=== PATIENT | female | born 1985 | race Caucasian/White ===

== ENCOUNTER 2025-02-13 06:48 | Emergency (ER) | payer BC, SELFPAY ==
[2025-02-13 06:52] VITALS: BP 112/94; PULSE 104; TEMP 36.9; O2SAT 95; BMI 26.6
--- OUTSIDE RECORDS SUMMARY | 2025-02-13 06:57 | XMS_ITS | CCD ---
Author Organization [facility] Care Team Providers Care Voltmeter Operator Name Role Phone Hali Myles Unavailable DR LIZETH OTERO Primary Care Unavailable ROSANNA ., DR JOSEPH Lyles Attending Unavailable ROSANNA ., DR JOSEPH Lyles Consulting Unavailable ROSANNA ., DR JOSEPH Lyles Admitting Unavailable JOSÉ ., DR STANLEY Primary Care Unavailable JOSÉ ., DR STANLEY Admitting Unavailable JOSÉ ., DR STANLEY Attending Unavailable JOSÉ ., DR STANLEY Consulting Unavailable Provider, None Primary Care Unavailable LIZETH NAVARRO Referring Unavailable LIZETH NAVARRO Primary Care Unavailable RADHA LAMB Referring Unavailable LIZETH NAVARRO Primary Care Unavailable RADHA LAMB Referring Unavailable LIZETH NAVARRO Primary Care Unavailable Lizeth Navarro MD Primary Care Provider [phone] Medications Current Medications Medication Drug Class(es) Dates Sig (Normalized) Sig (Original) 24 hr buPROPion hydrochloride 300 mg extended release oral tablet (3 sources) Aminoketone Start: 03-30-2022 take 1 tablet by mouth every twenty-four hours Bupropion Hcl 300 mg tablet extended release 24 hr Active MG PO April 24, 2024 11:00pm levothyroxine sodium 0.05 mg oral tablet (3 sources) l-Thyroxine Start: 04-18-2022 take 2 tablets by mouth once daily Levothyroxine 50 mcg tablet Active 100 MCG PO Daily April 24, 2024 11:00pm liothyronine (3 sources) l-Triiodothyronin e Start: 04-25-2024 take 1 tablet by mouth once daily Liothyronine 5 mcg tablet Active 5 MCG PO Daily April 24, 2024 11:00pm Start: 04-22-2022 take 1 tablet by caren th in the morning liothyronine (CYTOMEL) 5 MCG tablet Take 1 tablet (5 mcg total) by mouth in the morning. 04/22/2022 Active 24 hr propranolol hydrochloride 60 mg extended release oral capsule (3 sources) beta-Adrenergic Constance Start: 04-25-2024 take 1 capsule by mouth every twenty-four hours Propranolol 60 mg capsule,extended release 24 hr Active MG PO April 24, 2024 11:00pm Start: 06-01-2022 take 1 capsule by mo ut once daily propranolol LA (INDERAL LA) 60 mg 24 hr capsule Take by mouth daily. 06/01/2022 Active SUMAtriptan 100 mg oral tablet (4 sources) Serotonin-1b and Serotonin-1d Receptor Agonist Start: 06-19-2022 Sumatriptan Succinat e 100 mg tablet Active MG PO April 24, 2024 11:00pm Imitrex 6 MG/0.5 ML 0.5 ml may repeat dose after 1 hour as needed Injection Once a day Active Completed/Discontinued Medications Medication Drug Class(es) Dates Sig (Normalized) Sig (Original) Toradol 30 mg/ml (1 source) Start: 06-10-2022 Toradol 30 mg/ml May, 30 mg Problems Active Problems Problem Classification Problem Date Documented Da te Episodic/Chronic Headache; including migraine (5 sources) Migraine, unspecified, not intractable, without status migrainosus; Translations: [Migraine] Onset: 12-24-2022 08-23-2024 Chronic Other nutritional; endocrine; and metabolic disorders (2 sources) Obese class I; Translations: [Obesity (BMI 30.0-34.9)] Onset: 08-23-2024 08-23-2024 Chronic Other screening for suspected conditions (not mental disorders or infectious disease) (2 sources) Encounter for screening mammogram for malignant neoplasm of breast; Translations: [Patient encounter status] Onset: 08-31-2024 08-23-2024 Episodic Spondylosis; intervertebral disc disorders; other back problems (4 sources) Spondylosis without myelopathy or radiculopathy, cervical region; Translations: [SPONDYLS W/O MYELO-/RADICULOP CERV] Onset: 12-22-2022 Chronic Thyroid disorders (1 source) Hypothyroidism, unspecified; Translations: [Hypothyroidism, unspecified] Onset: 06-30-2024 Chronic Past or Other Problems Problem Classification Problem Date Documented Date Episodic/Chronic Headache; including migraine (1 source) Headache; including migraine Onset: 06-10-2022 Resolved: 06-10-2022 Mood disorders (2 sources) Mood disorders Onset: 08-23-2024 08-23-2024 Nausea and vomiting (1 source) Nausea Onset: 06-10-2022 Resolved: 06-10-2022 Episodic Nonmalignant breast conditions (2 sources) Heterogeneously dense breast composition; Translations: [Heterogeneously dense tissue of both breasts on mammography] Onset: 08-31-2024 08-31-2024 Episodic Screening and history of mental health and substance abuse codes (1 source) Standardized adult depression screening tool completed ; Translations: [Encounter for screening for depression] 08-23-2024 Episodic Unclassified (2 sources) Onset: 08-23-2024 08-23-2024 Results Test Name Value Interpretation Reference Range Facility MAMM SCREENING BILATERAL W C feather baler 08-31-2024 MAMM SCREENING BILATERAL W CAD MAMM SCREENING BILATERAL W CAD VINCENZO BAGLEY 1985 [id number] EXAM: MAMM SCREENING BILATERAL W CAD, 08/31/2024 9:16 AM CLINICAL INDICATIONS: Screening, Encounter for screening mammogram for breast cancer COMPARISON: No prior studies currently available for comparison. TECHNIQUE: Bilateral digital tomosynthesis MLO and CC views of the breasts were obtained, with creation of synthetic 2D views. Computer aided detection was utilized. FINDINGS: The breasts are heterogeneously dense, which may obscure small masses. There are no suspicious masses, calcifications, or areas of architectural distortion. IMPRESSION: No mammographic evidence of malignancy. BI-RADS: BI-RADS 1 - Negative Recommendation: Routine screening mammogram in 1 year. As a separate recommendation, due to the density and/or complexity of breast tissue on mammography, Molecular Breast Imaging is recommended as a supplement to annual screening mammography. MBI can be used to help detect mammographically occult cancers in dense breasts. Finalized by Herson Feliciano MD on 08/31/2024 9:55 AM 1 c MAMM 1 YR Normal [facility] Cytologyon 08-23-2024 Cytology Normal [facility] Comment on above: Result Comment: [facility] [address] [place] [address] Gynecologic Cytology Consultation Patient Name:SANDRA BAGLEY:1985 (Age: 38)Gender:FTaken:4Reported:4Physician(s):Radha Lamb, [facility] ([phone])Copy To: Rec. #:[id number]: #[id number] Final Cytologic Interpretation ThinPrep Pap Test (Cervical): Satisfactory for evaluation. A transformazion zone component is not identified via imaging-assisted review, using CRISPR THERAPEUTICS Thin Prep Imaging System, within 22 microscopic murray of view. NEGATIVE FOR INTRAEPITHELIAL LESION OR MALIGNANCY. [facility] [place] Interpretation performed [place] [address], License number: [id number]. Electronically Signed Out By HUGO Rosales(ASCP) Date of Last Menstrual Period: 08/16/24 Other Clinical Conditions: Z01.419 [facility] exam wo/abn findings Source of Specimen ThinPrep Pap Test (Cervical) Thin Prep Pap (QUARTZ MOUNTER) Fee Code(s): G0145 The Pap test is a screening test with an inherent, but low, probability of error. The Pap test is primarily effective for the diagnosis and prevention of squamous cell carcinoma. Regular screening is critical for prevention. ThinPrep liquid-based slides, which meet the Physical Therapist Center Manager criteria for automated screening, have been screened by the ThinPrep Imaging System (as of 08/15/07) along with an additional manual rescreening by a weather clerk and, if indicated, by a pathologist. HIGH RISK HPV W/GENOon 08-23 HPV 31+33+35+39+45+51+52 +56+58+59+66+68 DNA LUIGI+probe Ql (Cvx) HPV SPECIMEN TYPE ThinPrep HPV 16 Negative (qualifier value) HPV 18 Negative (qualifier value) OTHER HIGH RISK HPV Negative (qualifier value) HPV types 31,33,35,39,45,52,56, 58,59,66 and 68 DNA were undetectable. Normal [facility] Comment on above: Performed By: #### 7 1431-1 #### [facility] ([id number]) [address], [place] [address] [facility] ([id number]) [address] [place] [address] CBC AND AUTO DIFFon 06-30-20 24 ABSOLUTE BASOPHIL 0.0 X10E9/L Normal 0.0-0.2 [facility] Comment on above: Performed By: #### C BCA, HA1C, CMP, 45071-4, THYR, 3051-0 #### [facility] ([id number]) [address], [address] [place] [address] ABSOLUTE NEUTROPHIL 2.1 X10E9/L Normal 1.5-6.6 [facility] Comment on above: Performed By: #### C BCA, HA1C, CMP, 33995-4, THYR, 3051-0 #### [facility] ([id number]) [address], [address] [place] [address] Basophils/100 WBC (Bld) 1.0 % Normal [facility] Comment on above: Performed By: #### C BCA, HA1C, CMP, 08234-5, THYR, 3051-0 #### [facility] ([id number]) [address], [address] [place] [address] Eosinophils (Bld) [#/Vol] 0.0 10*3/uL Normal 0.0-0.4 [facility] Comment on above: Performed By: #### C BCA, HA1C, CMP, 27950-6, THYR, 3051-0 #### [facility] ([id number]) [address], [address] [place] [address] Eosinophils/100 WBC (Bld) 1.2 % Normal [facility] Comment on above: Performed By: #### C BCA, HA1C, CMP, 41874-8, THYR, 3051-0 #### [facility] ([id number]) [address], [address] [place] [address] Erythrocyte distribution width (RBC) [Ratio] 13.9 % Normal 11.5-15.0 [facility] Comment on above: Performed By: #### C BCA, HA1C, CMP, 76058-6, THYR, 3051-0 #### [facility] ([id number]) [address] [address] [place] [address] Hematocrit (Bld) [Volume fraction] 39.7 % Normal 35-47 [facility] Comment on above: Performed By: #### C BCA, HA1C, CMP, 96097-0, THYR, 3051-0 #### [facility] ([id number]) [address] [address] [place] [address] Hemoglobin (Bld) [Mass/Vol] 13.1 g/dL Normal 11.7-15.5 [facility] Comment on above: Performed By: #### C BCA, HA1C, CMP, 18016-8, THYR, 3051-0 #### [facility] ([id number]) [address] [address] [place] [address] Lymphocytes (Bld) [#/Vol] 1.6 10*3/uL Normal 1.0-3.5 [facility] Comment on above: Performed By: #### C BCA, HA1C, CMP, 27935-2, THYR, 3051-0 #### [facility] ([id number]) [address] [address] [place] [address] Lymphocytes/100 WBC (Bld) 38.7 % Normal [facility] Comment on above: Performed By: #### C BCA, HA1C, CMP, 00492-7, THYR, 3051-0 #### [facility] ([id number]) [address] [place] [address] MCH (RBC) [Entitic mass] 30.0 pg Normal 27-34 [facility] Comment on above: Performed By: #### C BCA, HA1C, CMP, 60089-7, THYR, 3051-0 #### [facility] ([id number]) [address], [facility] [address] [place] [address] MCHC (RBC) [Mass/Vol] 32.9 g/dL Normal 32-36 [facility] Comment on above: Performed By: #### C BCA, HA1C, CMP, 24254-6, THYR, 3051-0 #### [facility] ([id number]) [address] [address] [place] [address] MCV (RBC) [Entitic vol] 91 fL Normal 80-100 [facility] Comment on above: Performed By: #### C BCA, HA1C, CMP, 63960-7, THYR, 3051-0 #### [facility] ([id number]) [address], [facility] [address] [place] [address] Monocytes (Bld) [#/Vol] 0.4 10*3/uL Normal 0-0.9 [facility] Comment on above: Performed By: #### C BCA, HA1C, CMP, 66508-3, THYR, 3051-0 #### [facility] ([id number]) [address] [address] [place] [address] Monocytes/100 WBC (Bld) 8.5 % Normal [facility] Comment on above: Performed By: #### C BCA, HA1C, CMP, 81919-7, THYR, 3051-0 #### [facility] ([id number]) [address] [address] [place] [address] Neutrophils/100 WBC (Bld) 50.6 % Normal [facility] Comment on above: Performed By: #### C BCA, HA1C, CMP, 73216-6, THYR, 3051-0 #### [facility] ([id number]) [address], [address] [place] [address] Platelet mean volume (Bld) [Entitic vol] 10.1 fL Normal 7-12 [facility] Comment on above: Performed By: #### C BCA, HA1C, CMP, 53459-2, THYR, 3051-0 #### [facility] ([id number]) [address] [address] [place] [address] Platelets (Bld) [#/Vol] 227 10*3/uL Normal 150-450 [facility] Comment on above: Performed By: #### C BCA, HA1C, CMP, 44951-0, THYR, 3051-0 #### [facility] ([id number]) [address] [address] [place] [address] RBC COUNT 4.36 X10E12/L Normal 3.80-5.20 [facility] Comment on above: Performed By: #### C BCA, HA1C, CMP, 55286-0, THYR, 3051-0 #### [facility] ([id number]) [address] [address] [place] [address] WBC (Bld) [#/Vol] 4.2 10*3/uL Normal 4.0-11.0 [facility] Comment on above: Performed By: #### C BCA, HA1C, CMP, 14611-0, THYR, 3051-0 #### [facility] ([id number]) [address] [address] [place] [address] COMPREHENSIVE METABOLIC PANE Andres 06-30-2024 Albumin [Mass/Vol] 4.2 g/dL Normal 3.2-5.3 [facility] Comment on above: Performed By: #### C BCA, HA1C, CMP, 20882-4, THYR, 3051-0 #### [facility] ([id number]) [address] [address] [place] [address] ALP [Catalytic activity/Vol] 66 U/L Normal 39-130 [facility] Comment on above: Performed By: #### C BCA, HA1C, CMP, 98534-3, THYR, 3051-0 #### [facility] ([id number]) [address], [address] [place] [address] ALT [Catalytic activity/Vol] 27 U/L Normal 0-31 [facility] Comment on above: Performed By: #### C BCA, HA1C, CMP, 61390-9, THYR, 3051-0 #### [facility] ([id number]) [address], [address] [place] [address] Anion gap [Moles/Vol] 11 mmol/L Normal 5-15 [facility] Comment on above: Performed By: #### C BCA, HA1C, CMP, 40509-7, THYR, 3051-0 #### [facility] ([id number]) [address], [address] [place] [address] AST [Catalytic activity/Vol] 23 U/L Normal 0-41 [facility] Comment on above: Performed By: #### C BCA, HA1C, CMP, 42850-5, THYR, 3051-0 #### [facility] ([id number]) [address], [address] [place] [address] Bilirubin [Mass/Vol] 0.5 mg/dL Normal 0.3-1.2 [facility] Comment on above: Performed By: #### C BCA, HA1C, CMP, 21656-1, THYR, 3051-0 #### [facility] ([id number]) [address] [address] [place] [address] Calcium [Mass/Vol] 9.3 mg/dL Normal 8.5-10.5 [facility] Comment on above: Performed By: #### C BCA, HA1C, CMP, 64103-0, THYR, 3051-0 #### [facility] ([id number]) [address], [address] [place] [address] Chloride [Moles/Vol] 101 mmol/L Normal 98-109 [facility] Comment on above: Performed By: #### C BCA, HA1C, CMP, 91045-8, THYR, 3051-0 #### [facility] ([id number]) [address], [address] [place] [address] CO2 [Moles/Vol] 26 mmol/L Normal 22-32 [facility] Comment on above: Performed By: #### C BCA, HA1C, CMP, 16305-0, THYR, 305-0 #### [facility] ([id number]) [address], [address] [place] [address] Creatinine [Mass/Vol] 0.72 mg/dL Normal 0.40-1.00 [facility] Comment on above: Result Comment: METH OD TRACEABLE TO IDMS STANDARD Performed By: #### C BCA, HA1C, CMP, 82389-5, THYR, 305-0 #### [facility] ([id number]) [address] [address] [place] [address] eGFR (CKD-EPI) NON-RACE DEPENDENT >90 Normal >59 [facility] Comment on above: Result Comment: Reported eGFR is based on the CKD-EPI 2020 equation that does not use a race coefficient. Performed By: #### C BCA, HA1C, CMP, 76101-8, THYR, 3051-0 #### [facility] ([id number]) [address] [address] [place] [address] Glucose [Mass/Vol] 91 mg/dL Normal 65-99 [facility] Comment on above: Performed By: #### C BCA, HA1C, CMP, 23855-3, THYR, 3051-0 #### [facility] ([id number]) [address], [address] [place] [address] Potassium [Moles/Vol] 4.0 mmol/L Normal 3.5-5.0 [facility] Comment on above: Performed By: #### C BCA, HA1C, CMP, 25064-4, THYR, 3051-0 #### [facility] ([id number]) [address], [address] [place] [address] Protein [Mass/Vol] 7.1 g/dL Normal 6.0-8.0 [facility] Comment on above: Performed By: #### C BCA, HA1C, CMP, 70571-9, THYR, 3051-0 #### [facility] ([id number]) [address], [address] [place] [address] Sodium [Moles/Vol] 138 mmol/L Normal 134-146 [facility] Comment on above: Performed By: #### C BCA, HA1C, CMP, 26443-6, THYR, 3051-0 #### [facility] ([id number]) [address], [address] [place] [address] Urea nitrogen [Mass/Vol] 12 mg/dL Normal 5-23 [facility] Comment on above: Performed By: #### C BCA, HA1C, CMP, 07115-3, THYR, 3051-0 #### [facility] ([id number]) [address], [address] [place] [address] FREE T3on 06-30-2024 Free T3 [Mass/Vol] 3.31 pg/mL Normal 2.50-3.90 [facility] Comment on above: Performed By: #### C BCA, HA1C, CMP, 31502-7, THYR, 3051-0 #### [facility] ([id number]) [address], [address] [place] [address] HGB A1C (GLYCO-HGB)on 2023 Glucose [Mass/Vol] 97 mg/dL Normal [facility] Comment on above: Performed By: #### C BCA, HA1C, CMP, 23252-2, THYR, 3051-0 #### [facility] ([id number]) [address], [address] [place] [address] HbA1c (Bld) [Mass fraction] 5.0 % Normal 4.4-5.6 [facility] Comment on above: Result Comment: NOTE ADA Guidelines Result HgbA1c Normal : less than 5.7 % Prediabetes : 5.7 % to 6.4 % Diabetes : > 6.4 % Use with caution in patients with abnormal hemoglobin variants as the half-life of red blood cells and in vivo glycation rates are affected. Performed By: #### C BCA, HA1C, CMP, 56910-3, THYR, 3051-0 #### [facility] ([id number]) [address], [address] [place] [address] Lipid 1996 panelon 4 Cholesterol [Mass/Vol] 173 mg/dL Normal 150-200 [facility] Comment on above: Performed By: #### Deondre BCA, HA1C, CMP, 35853-2, THYR, 3051-0 #### [facility] ([id number]) [address], [address] [place] [address] Cholesterol in HDL [Mass/Vol] 73 mg/dL Normal >39 [facility] Comment on above: Result Comment: HDL <40 mg/dL - High Risk HDL > or = 40mg/dL- Desirable HDL >60 mg/dL - Negative Risk Performed By: #### C BCA, HA1C, CMP, 37114-3, THYR, 3051-0 #### [facility] ([id number]) [address], [address] [place] [address] Cholesterol in LDL [Mass/Vol] 89 mg/dL Normal <130 [facility] Comment on above: Result Comment: LDL <100 mg/dL - Desirable LDL >160 mg/dL - High Risk Performed By: #### C BCA, HA1C, CMP, 80021-9, THYR, 3051-0 #### [facility] ([id number]) [address], [facility] [address] [place] [address] Cholesterol in VLDL [Mass/Vol] 11 mg/dL Normal 0-30 [facility] Comment on above: Performed By: #### C BCA, HA1C, CMP, 17574-9, THYR, 3051-0 #### [facility] ([id number]) [address], [facility] [address] [place] [address] CHOLESTEROL:HDL 2.4 Normal 1.0-5.0 [facility] Comment on above: Performed By: #### C BCA, HA1C, CMP, 31435-1, THYR, 3051-0 #### [facility] ([id number]) [address], [facility] [address] [place] [address] Triglyceride [Mass/Vol] 56 mg/dL Normal 27-150 [facility] Comment on above: Performed By: #### C BCA, HA1C, CMP, 13236-1, THYR, 3051-0 #### [facility] ([id number]) [address], [facility] [address] [place] [address] THYROID PROFILEon 06-30-2024 Free T4 [Mass/Vol] 0.75 ng/dL Normal 0.61-1.60 [facility] Comment on above: Performed By: #### C BCA, HA1C, CMP, 98453-0, THYR, 3051-0 #### [facility] ([id number]) [address], [address] [place] [address] TSH 2.51 uIU/mL Normal 0.49-4.67 [facility] Comment on above: Performed By: #### C BCA, HA1C, CMP, 09117-4, THYR, 3051-0 #### [facility] ([id number]) [address] [place] [address] Lab - Toxicology Resultson 0 06-21-2023 Lab - Toxicology Results [id number]#1. 00OTGTIFF Normal [facility] QuantiFERON-TB Gold Pluson 0 06-19-2023 QuantiFERON Incubation Incubation performed. Invalid Interpretation Code [facility] Comment on above: Result Comment: Perf ormed At: [address] [id number] Joelle Villa PhD Ph:[phone] Performed By: #### 1 [id number], [id number] #### [facility] (DEFAULT) [address] [place] [id number] QuantiFERON-TB Gold Plus Negative Invalid Interpretation Code Negative [facility] Comment on above: Result Comment: No r esponse to M tuberculosis antigens detected. Infection with M tuberculosis is unlikely, but high risk individuals should be considered for additional testing (ATS/IDSA/CDC Clinical Practice Guidelines, 2017). The reference range is an Antigen minus Nil result of <0.35 IU/mL. Chemiluminescence immunoassay methodology Performed At: [address] [id number] Joelle Villa PhD Ph:[phone] Performed By: #### 1 [id number], [id number], [id number] #### [facility] (DEFAULT) [address] [place] [id number] HBSab Qnt LCon 06-18-2023 Hep B Surf Ab Quant LC >1000.0 Invalid Interpretation Code Immunity>9.9 [facility] Comment on above: Result Comment: Stat us of Immunity Anti-HBs Level Inconsistent with Immunity 0.0 - 9.9 Consistent with Immunity >9.9 Performed At: [address] [id number] Joelle Villa PhD Ph:[phone] Performed By: #### 1 [id number], [id number], [id number] #### [facility] (DEFAULT) [address] [place] [id number] Measles/Mumps/Rubella Immuni ty LCon 06-18-2023 Mumps Abs, IgG LC 41.8 AU/mL Invalid Interpretation Code Immune >10.9 [facility] Comment on above: Result Comment: Nega tive <9.0 Equivocal 9.0 - 10.9 Positive >10.9 A positive result generally indicates past exposure to Mumps virus or previous vaccination. Performed At: [address] [id number] Joelle Villa PhD Ph:[phone] Performed By: #### 1 [id number] #### [facility] (DEFAULT) [address] [place] [address] Rubella Antibodies, IgG LC 2.76 index Invalid Interpretation Code Immune >0.99 [facility] Comment on above: Result Comment: Non- immune <0.90 Equivocal 0.90 - 0.99 Immune >0.99 Performed By: #### 1 [id number] #### [facility] (DEFAULT) [address] [place] [id number] Rubeola Ab, IgG, EIA LC 147.0 AU/mL Invalid Interpretation Code Immune >16.4 [facility] Comment on above: Result Comment: Nega tive <13.5 Equivocal 13.5 - 16.4 Positive >16.4 Presence of antibodies to Rubeola is presumptive evidence of immunity except when acute infection is suspected. Performed By: #### 1 [id number] #### [facility] (DEFAULT) [address] [place] [id number] Nicotine Metabolite, Urine L Con 06-18-2023 Cotinine LC Negative Invalid Interpretation Code [id number] [facility] Comment on above: Result Comment: Perf ormed At: [facility] [address] [facility], [place] [id number] Alexandria Eagle PhD Ph:[phone] Performed By: #### 1 [id number] #### [facility] (DEFAULT) [address] [place] [address] CBC AUTO DIFFon 04-12-2023 BASO # 0.0 103/ul Normal 0.0-0.1 [facility] Comment on above: Performed By: #### C BC #### [facility] [address] [place] [address] Dr. Meseret Zelaya Basophils/100 WBC (Bld) 0.5 % Normal 0.2-2.0 [facility] Comment on above: Performed By: #### C BC #### [facility] [address] [place] [address] Dr. Meseret Zelaya EO # 0.1 103/ul Normal 0.0-0.7 [facility] Comment on above: Performed By: #### C BC #### [facility] [address] [place] [address] Dr. Meseret Zelaya Eosinophils/100 WBC (Bld) 1.5 % Normal 0.9-7.0 [facility] Comment on above: Performed By: #### C BC #### [facility] [address] [place] [address] Dr. Meseret Zelaya Erythrocyte distribution width (RBC) [Ratio] 12.6 % Normal 11.0-15.0 [facility] Comment on above: Performed By: #### C BC #### [facility] [address] [place] [address] Dr. Meseret Zelaya Hematocrit (Bld) [Volume fraction] 36.2 % Normal 36.0-48.0 [facility] Comment on above: Performed By: #### C BC #### [facility] [address] [place] [address] Dr. Meseret Zelaya Hemoglobin (Bld) [Mass/Vol] 12.1 g/dL Normal 12.0-16.0 [facility] Comment on above: Performed By: #### C BC #### [facility] [address] [place] [address] Dr. Meseret Zelaya IG # 0.01 10e3/ul Normal 0.00-0.03 [facility] Comment on above: Performed By: #### C BC #### [facility] [address] [place] [address] Dr. Meseret Zelaya IG % 0.2 % Normal 0.0-0.5 [facility] Comment on above: Performed By: #### C BC #### [facility] [address] [place] [address] Dr. Meseret Zelaya LYMPH # 1.9 103/ul Normal 1.2-3.8 [facility] Comment on above: Performed By: #### C BC #### [facility] [address] [place] [address] Dr. Meseret Zelaya Lymphocytes/100 WBC (Bld) 31.7 % Normal 20.5-60.0 [facility] Comment on above: Performed By: #### C BC #### [facility] [address] [place] [address] Dr. Meseret Zelaya MANUAL DIFF REQ NO Normal [facility] Comment on above: Performed By: #### C BC #### [facility] [address] [place] [address] Dr. Meseret Zelaya MCH (RBC) [Entitic mass] 30.3 pg Normal 26.7-34.0 [facility] Comment on above: Performed By: #### C BC #### [facility] [address] [place] [address] Dr. Meseret Zelaya MCHC (RBC) [Mass/Vol] 33.4 g/dL Normal 29.9-35.2 [facility] Comment on above: Performed By: #### C BC #### [facility] [address] [place] [address] Dr. Meseret Zelaya MCV (RBC) [Entitic vol] 90.5 fL Normal 81.0-99.0 [facility] Comment on above: Performed By: #### C BC #### [facility] [address] [address] [address] Meseret Zelaya MONO # 0.3 103/ul Normal 0.3-0.8 [facility] Comment on above: Performed By: #### C BC #### [facility] [address] [address] [address] Meseret Zelaya Monocytes/100 WBC (Bld) 5.6 % Normal 1.7-12.0 [facility] Comment on above: Performed By: #### C BC #### [facility] [address] [address] [address] Meseret Zelaya NEUT # 3.6 103/ul Normal 1.4-6.5 [facility] Comment on above: Performed By: #### C BC #### [facility] [address] [place] [address] Dr. Meseret Zelaya Neutrophils/100 WBC (Bld) 60.5 % Normal 43.0-75.0 [facility] Comment on above: Performed By: #### C BC #### [facility] [address] [place] [address] Dr. Meseret Zelaya Platelet mean volume (Bld) [Entitic vol] 9.9 fL Normal 9.5-13.5 [facility] Comment on above: Performed By: #### C BC #### [facility] [address] [place] [address] Dr. Meseret Zelaya PLT 276 103/ul Normal 150-450 [facility] Comment on above: Performed By: #### C BC #### [facility] [address] [address] [address] Meseret Zelaya RBC 4.00 106/ul Critically low 4.20-5.40 [facility] Comment on above: Performed By: #### C BC #### [facility] [address] [address] [address] Meseret Zelaya WBC 5.9 103/ul Normal 4.0-11.0 [facility] Comment on above: Performed By: #### C BC #### [facility] [address] [address] [address] Meseret Zelaya FREE T3on 04-12-2023 FREE T3 3.21 pg/mlL Normal 2.18-3.98 [facility] Comment on above: Performed By: #### L IPID, CMP, TSH, FT3, T4 #### [facility] [address] [address] [address] Meseret Zelaya GLYCOHEMOGLOBIN A1Con 2022 ADA RECOMMENDATION SEE BELOW Normal [facility] Comment on above: Result Comment: ADA RECOMMENDED LIMIT 4.0 - 6.0 ADA THERAPEUTIC TARGET < 7.0 ACTION SUGGESTED > 7.0 Performed By: #### A 1C #### [facility] [address] [place] [address] Dr. Meseret Zelaya Glucose [Mass/Vol] 97 mg/dL Normal [facility] Comment on above: Performed By: #### A 1C #### [facility] [address] [place] [address] Dr. Meseret Zelaya HbA1c (Bld) [Mass fraction] 5.0 % Normal 4.5-6.2 [facility] Comment on above: Performed By: #### A 1C #### [facility] [address] [place] [address] Dr. Meseret Zelaya LIPID PROFILEon 04-12-2023 CHOL-HDL RATIO NORM SEE BELOW Normal [facility] Comment on above: Result Comment: 3.3 - 4.4 LOW RISK 4.4 - 7.1 AVERAGE RISK 7.1 - 11.0 MODERATE RISK >11.0 HIGH RISK Performed By: #### L IPID, CMP, TSH, FT3, T4 #### [facility] [address] [place] [address] Dr. Meseret Zelaya Cholesterol [Mass/Vol] 192 mg/dL Normal <=200 [facility] Comment on above: Performed By: #### L IPID, CMP, TSH, FT3, T4 #### [facility] [address] [place] [address] Dr. Meseret Zelaya Cholesterol in HDL [Mass/Vol] 75 mg/dL Critically high 40-60 [facility] Comment on above: Performed By: #### L IPID, CMP, TSH, FT3, T4 #### [facility] [address] [address] [address] Meseret Zelaya Cholesterol in LDL [Mass/Vol] 97.4 mg/dL Normal [facility] Comment on above: Performed By: #### L IPID, CMP, TSH, FT3, T4 #### [facility] [address] [address] [address] Meseret Zelaya Cholesterol.total/Ch olesterol in HDL [Mass ratio] 2.6 {ratio} Normal [facility] Comment on above: Performed By: #### L IPID, CMP, TSH, FT3, T4 #### [facility] [address] [place] [address] Dr. Meseret Zelaya HDL NORMAL > or = 60 mg/dl - LO W CARDIOVASCULAR RISK <40 mg/dl - HIGH CARDIOVASCULAR RISK Normal [facility] Comment on above: Performed By: #### L IPID, CMP, TSH, FT3, T4 #### [facility] [address] [place] [address] Dr. Meseret Zelaya LDL CALC NORMAL SEE BELOW Normal [facility] Comment on above: Result Comment: <100 mg/dl OPTIMAL 100 - 129 mg/dl NEAR OR ABOVE OPTIMAL 130 - 159 mg/dl BORDERLINE HIGH 160 - 189 mg/dl HIGH >190 mg/dl VERY HIGH Performed By: #### L IPID, CMP, TSH, FT3, T4 #### [facility] [address] [address] [address] Meseret Zelaya Triglyceride [Mass/Vol] 98 mg/dL Normal <=150 [facility] Comment on above: Performed By: #### L IPID, CMP, TSH, FT3, T4 #### [facility] [address] [place] [address] Dr. Meseret Zelaya VLDL CALC 19.6 mg/dL Normal [facility] Comment on above: Performed By: #### L IPID, CMP, TSH, FT3, T4 #### [facility] [address] [place] [address] Dr. Meseret Zelaya PROF 14(COMP METB)on 023 Albumin [Mass/Vol] 3.5 g/dL Normal 3.4-5.0 [facility] Comment on above: Performed By: #### L IPID, CMP, TSH, FT3, T4 #### [facility] [address] [place] [address] Dr. Meseret Zelaya Albumin/Globulin [Mass ratio] 1.0 {ratio} Normal [facility] Comment on above: Performed By: #### L IPID, CMP, TSH, FT3, T4 #### [facility] [address] [place] [address] Dr. Meseret Zelaya ALP [Catalytic activity/Vol] 72 U/L Normal 46-116 [facility] Comment on above: Performed By: #### L IPID, CMP, TSH, FT3, T4 #### [facility] [address] [place] [address] Dr. Meseret Zelaya ALT [Catalytic activity/Vol] 35 U/L Normal 14-59 [facility] Comment on above: Performed By: #### L IPID, CMP, TSH, FT3, T4 #### [facility] [address] [place] [address] Dr. Meseret Zelaya Anion gap [Moles/Vol] 12.0 mmol/L Normal [facility] Comment on above: Performed By: #### L IPID, CMP, TSH, FT3, T4 #### [facility] [address] [place] [address] Dr. Meseret Zelaya AST [Catalytic activity/Vol] 22 U/L Normal 15-37 [facility] Comment on above: Performed By: #### L IPID, CMP, TSH, FT3, T4 #### [facility] [address] [place] [address] Dr. Meseret Zelaya Bilirubin [Mass/Vol] 0.4 mg/dL Normal 0.2-1.0 [facility] Comment on above: Performed By: #### L IPID, CMP, TSH, FT3, T4 #### [facility] [address] [place] [address] Dr. Meseret Zelaya Calcium [Mass/Vol] 8.9 mg/dL Normal 8.5-10.1 [facility] Comment on above: Performed By: #### L IPID, CMP, TSH, FT3, T4 #### [facility] [address] [address] [address] Meseret Zelaya Chloride [Moles/Vol] 104 mmol/L Normal 98-107 [facility] Comment on above: Performed By: #### L IPID, CMP, TSH, FT3, T4 #### [facility] [address] [address] [address] Meseret Zelaya CO2 [Moles/Vol] 28.9 mmol/L Normal 21.0-32.0 [facility] Comment on above: Performed By: #### L IPID, CMP, TSH, FT3, T4 #### [facility] [address] [address] [address] Meseret Zelaya Creatinine [Mass/Vol] 0.76 mg/dL Normal 0.55-1.02 [facility] Comment on above: Performed By: #### L IPID, CMP, TSH, FT3, T4 #### [facility] [address] [address] [address] Meseret Zelaya EGFR-AF DANISH >60 Normal >=60 [facility] Comment on above: Performed By: #### L IPID, CMP, TSH, FT3, T4 #### [facility] [address] [address] [address] Meseret Zelaya EGFR-NON AF DANISH >60 Normal >=60 [facility] Comment on above: Performed By: #### L IPID, CMP, TSH, FT3, T4 #### [facility] [address] [address] [address] Meseret Zelaya Globulin (S) [Mass/Vol] 3.6 g/dL Normal [facility] Comment on above: Performed By: #### L IPID, CMP, TSH, FT3, T4 #### [facility] [address] [address] [address] Meseret Zelaya Glucose [Mass/Vol] 89 mg/dL Normal 74-106 [facility] Comment on above: Performed By: #### L IPID, CMP, TSH, FT3, T4 #### [facility] [address] [place] [address] Dr. Meseret Zelaya Potassium [Moles/Vol] 3.9 mmol/L Normal 3.5-5.1 [facility] Comment on above: Performed By: #### L IPID, CMP, TSH, FT3, T4 #### [facility] [address] [place] [address] Dr. Meseret Zelaya Protein [Mass/Vol] 7.1 g/dL Normal 6.4-8.2 [facility] Comment on above: Performed By: #### L IPID, CMP, TSH, FT3, T4 #### [facility] [address] [place] [address] Dr. Meseret Zelaya Sodium [Moles/Vol] 141 mmol/L Normal 136-145 [facility] Comment on above: Performed By: #### L IPID, CMP, TSH, FT3, T4 #### [facility] [address] [place] [address] Dr. Meseret Zelaya Urea nitrogen [Mass/Vol] 9.0 mg/dL Normal 7.0-18.0 [facility] Comment on above: Performed By: #### L IPID, CMP, TSH, FT3, T4 #### [facility] [address] [place] [address] Dr. Meseret Zelaya Urea nitrogen/Creatinine [Mass ratio] 11.8 mg/mg Normal [facility] Comment on above: Performed By: #### L IPID, CMP, TSH, FT3, T4 #### [facility] [address] [place] [address] Dr. Meseret Zelaya T4on 04-12-2023 T4 [Mass/Vol] 11.00 ug/dL Normal 4.80-13.90 [facility] Comment on above: Performed By: #### L IPID, CMP, TSH, FT3, T4 #### [facility] [address] [place] [address] Dr. Meseret Zelaya TSHon 04-12-2023 TSH 0.723 uIU/mL Normal 0.358-3.740 [facility] Comment on above: Performed By: #### L IPID, CMP, TSH, FT3, T4 #### [facility] [address] [place], [place] [address] Dr. Meseret Zelaya VITAMIN D 25 OHon 04-12-2023 VIT D 25-OH 28.6 ng/mL Normal [facility] Comment on above: Performed By: #### V ITAD #### [facility] [address] [address] [address] Meseret Zelaya VIT D RANGES SEE BELOW Normal [facility] Comment on above: Result Comment: <20 ng/mL Vit D deficient 20 - <30 ng/mL Vit D insufficient 30 - 100 ng/mL Vit D sufficient >100 ng/mL Potential Toxicity Performed By: #### V ITAD #### [facility] [address] [address] [address] Meseret Zelaya SURGICAL PATH REPORTon 12-14 SURGICAL PATH REPORT [facility] Department of Pathology [address] [place], [place] [id number] Name: VINCENZO BAGLEY : 1985 [facility] [id number] Number: Gender: Female Location: [facility] Admit 34 years Attending SHERWIN GAN Age: Provider: Ordering SHERWIN GAN Provider: Consulting: Surgical Pathology Report ACCESSION: COLLECTED DATE/TIME: RECEIVED DATE/TIME: PATHOLOGIST: [id number] 12/12/2019 16:30 EST 12/13/2019 12:53 EST ROBBIE PUGA MD Final Diagnosis Report for [facility] [place] [place] GALLBLADDER, CHOLECYSTECTOMY: - CHRONIC CHOLECYSTITIS AND CHOLELITHIASIS. ROBBIE PUGA PATHOLOGIST (Electronic Signature) Date Verified 12/14/2019 CW Clinical Data PRE-OP DIAGNOSIS: Not specified POST-OP DIAGNOSIS: Cholelithiasis, abdominal pain PROCEDURES: Laparoscopic cholecystectomy SPECIMEN: Gallbladder and contents / Ambulatory surgery Gross Description Labeled gallbladder and contents. Received in formalin is a roughly ovoid cystic structure. It is green blue to purple and measures 7.9 x 3.1 x 2.8 cm. The cystic duct line of resection is inked in blue. Upon opening, the gallbladder is filled with green viscous bile and three ovoid nodularly-contoured yellow green calculi, ranging in size from 1.0 to 1.5. These are not lodged in the cystic duct. The mucosal surface is chicas green. The wall measures 0.4 cm in thickness. [employer] sections are submitted in one cassette. MP:cw 12/13/2019 Print Date/ 12/14/2019 13:24 EST Number: Time: [facility] Department of Pathology [address] [place] [id number] Name: VINCENZO BAGLEY : 1985 [facility] [id number] Number: Gender: Female Location: [facility] Admit 34 years Attending SHERWIN GAN Age: Provider: Ordering SHERWIN GAN Provider: Consulting: Surgical Pathology Report ACCESSION: COLLECTED DATE/TIME: RECEIVED DATE/TIME: PATHOLOGIST: [id number] 12/12/2019 16:30 EST 12/13/2019 12:53 EST ROBBIE PUGA MD Gross Description Tissue pathology report for: [facility], [address] [place] [address]; PATHOLOGY SERVICES PROVIDED BY [employer] (CLIA #[id number]) in cooperation with [facility] at [address] [place] [address] (CLIA #[id number]) Codes CPT CODE: 16085 Print Date12/14/2019 13:24 EST Number: Time: Normal [facility] Comment on above: Performed By: #### [id number] #### [facility] [id number] [id number] [employer] Professor: Nathan De La Cruz MD Vital Signs Date Time Vital Sign Value Performing Clinician Facility 01-16-2025 14:31-0500 Body height 165.1 cm [facility] 01-16-2025 14:31-0500 Body mass index (BMI) [Ratio] 28.5 kg/m2 [facility] 01-16-2025 14:31-0500 Body temperature 98.5 [degF] [facility] 01-16-2025 14:31-0500 Body weight 77.79 kg [facility] 01-16-2025 14:31-0500 Diastolic blood pressure 80 mm[Hg] [facility] 01-16-2025 14:31-0500 Heart rate 73 /min [facility] 01-16-2025 14:31-0500 Respiratory rate 17 /min [facility] 01-16-2025 14:31-0500 SaO2% (BldA) [Mass fraction] 93 % [facility] 01-16-2025 14:31-0500 Systolic blood pressure 121 mm[Hg] [facility] 08-23-2024 13:18-0400 Body height 165.1 cm [facility] 08-23-2024 13:18-0400 Body mass index (BMI) [Ratio] 30.12 kg/m2 [facility] 08-23-2024 13:18-0400 Body weight 82.1 kg [facility] 08-23-2024 13:18-0400 Diastolic blood pressure 80 mm[Hg] [facility] 08-23-2024 13:18-0400 Systolic blood pressure 118 mm[Hg] [facility] 06-10-2022 17:35-0400 Body height 167.64 cm Hali Burrismond Other [facility] Other 06-10-2022 17:35-0400 Body mass index (BMI) [Ratio] 25.01 kg/m2 Hali Burrismond Other [facility] Other 06-10-2022 17:35-0400 Body temperature 97.8 [degF] Hali Burrismond Other [facility] Other 06-10-2022 17:35-0400 Body weight 70.31 kg Hali Burrismond Other [facility] Other 06-10-2022 17:35-0400 Diastolic blood pressure 88 mm[Hg] Hali Burrismond Other [facility] Other 06-10-2022 17:35-0400 Respiratory rate 18 /min Hali Burrismond Other [facility] Other 06-10-2022 17:35-0400 SaO2% (BldA) [Mass fraction] 98 % Hali Burrismond Other [facility] Other 06-10-2022 17:35-0400 Systolic blood pressure 149 mm[Hg] Hali Shameka Other [facility] Other Encounters Encounter Date Encounter Type Care Provider Facility Start: 01-16-2025 End: 01-16-2025 ambulatory [facility] Work Phone: Start: 01-16-2025 End: 01-16-2025 Patient encounter procedure [facility] Work Phone: Start: 08-31-2024 End: 08-31-2024 ambulatory [facility] Comment on above: Heterogeneously dens e tissue of both breasts on mammography (Primary Dx) Start: 08-23-2024 End: 08-23-2024 Encounter for gynecological examination (general) (routine) without abnormal findings [facility] Start: 08-23-2024 End: 08-23-2024 Patient encounter procedure [facility] Start: 08-23-2024 End: 08-23-2024 Periodic preventive med est patient 40-64yrs [facility] Comment on above: Well woman exam with routine gynecological exam (Primary Dx); Encounter for screening mammogram for breast cancer; Cervical smear, as part of routine gynecological examination; Standardized adult depression screening tool completed Start: 08-23-2024 End: 08-23-2024 ambulatory [facility] Start: 08-23-2024 Encounter for gynecological examination (general) (routine) without abnormal findings LIZETH HOY [facility] Start: 06-30-2024 End: 06-30-2024 ambulatory LIZETH Merino Gum[facility] Start: 06-30-2024 Encounter for genera l adult medical examination without [facility] Start: 06-17-2023 End: 06-18-2023 ambulatory None Provider Facility:[facility] Start: 04-12-2023 End: 04-13-[address] LIZETH NAVARRO . Facility: Start: 12-22-2022 End: 12-23-[address] LIZETH NAVARRO . 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 Work Phone: Start: 06-30-2023 Microscopic observat ion [Identifier] in Cervix by Cyto stain [facility] Plan of Treatment Date Care Activity Detail Author Start: 08-23-2027 Screening for malign ant neoplasm of cervix Pap Smear [facility] Start: 06-30-2026 Screening for malign ant neoplasm of cervix Pap Smear [facility] Start: 08-23-2025 Adult BMI Follow Up Plan Adult BMI Follow Up Plan [facility] Start: 08-23-2025 Adult BMI Screening Adult BMI Screen ing [facility] Start: 08-23-2025 Depression Screening Depression Scre ening [facility] Start: 08-23-2025 Tobacco Screening Tobacco Screening [facility] Start: 08-31-2024 End: 08-31-2025 NM Guidance limited for localization of tumor NM Molecular breast imaging localization limited area Imaging Routine Heterogeneously Dense Tissue Of Both Breasts On Mammography Expected: 08/31/2024, Expires: 08/31/2025 [facility] Work Phone: Comment on above: Expected: 08/31/2024 , Expires: 08/31/2025 Start: 08-31-2024 End: 08-31-2024 Patient encounter procedure 08/31/2024 9:15 AM EDT Appointment [facility] - Mammography/DEXA Imaging [address] [place] [id number] [facility] Mammography[facility]DEXA Imaging Start: 08-23-2024 End: 08-23-2025 Cytopathology procedure, preparation of smear, genital source Pap Smear Pathology and Cytology Routine Cervical smear, as part of routine gynecological examination Expected: 08/23/2024 (Approximate), Expires: 08/23/2025 [facility] Comment on above: Expected: 08/23/2024 (Approximate), Expires: 08/23/2025 Start: 08-23-2024 End: 08-23-2025 DBT Breast - bilateral screening Mammography screening bilateral with CAD Imaging Routine Encounter for screening mammogram for breast cancer Expected: 08/23/2024, Ex[facility] Phone: Comment on above: Expected: 08/23/2024 , Expires: 08/23/2025 Start: 07-30-2024 COVID-19 Vaccine ( season) COVID-19 Vaccine () [facility] Start: 07-30-2024 Influenza vaccination Influenza Vacc ine [facility] Start: 08-15-2022 DTaP,Tdap and Td Vaccines (2 - Td or Tdap) DTaP,Tdap and Td Vaccines (2 - Td or Tdap) [facility] End: 08-23-2025 High risk HPV w/sydni High risk HPV w/sydni Lab Routine Cervical smear, as part of routine gynecological examination 1 Occurrences starting 08/23/2024 until 08/23/2025 [facility] Comment on above: 1 Occurrences starti ng 08/23/2024 until 08/23/2025 Immunizations Immunization Date Immunization Notes Care Provider Fa cility 09-28-2023 influenza virus vacc ine, unspecified formulation [employer] [facility] Payers Date Payer Category Payer Unknown IRINA NUNN OUT OF STATE PPO/TRUST [id number] 2024-Present [phone] [address] [place] [address] [id number] 2024 Unknown [id number] 1985 Unknown [id number] 3 1985 Unknown [id number] 3 1985 Unknown [id number] 86 1985 Unknown [id number] 1985 Unknown [id number] 86 1961 [facility] [id number] Unknown [facility] [id number] Unknown Irina BC/BS [id number] Social History Date Type Detail Facility Unknown if ever smoked [facility] Other Start: 08-23-2024 Sex Assigned At N [facility] Other Start: 06-23-2022 End: 04-25-2024 Tobacco smoking status NHIS Never smoked tobacco [facility] Start: 06-23-2022 Tobacco use and exposure Smokeless tobacco non-user [facility] Start: 08-23-2024 End: 08-31-2024 Alcoholic beverage intake Ex-drinker (finding) [facility] Start: 08-23-2024 History of Social function [facility] Adolescent depressio n screening assessment 5 [facility] Start: 1985 Sex assigned at Not on file P [facility] Start: 01-16-2025 Sex Female (finding) [facility] Start: 1985 Sex Assigned At Female F [facility] History of Present illness Narrative 08-23-2024 Radha Lamb, SADAF-ASSISTANT CASE MANAGER - 08/23/2024 1:30 PM EDT Note Date & Type Note Facility 08-23-2024 History of Present illness Narrative Annual Well Woman Visit 08/23/2024 Whit Bagley is a pleasant 38 y.o. 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 Periods are regular every 28-30 days, lasting 3 days. Dysmenorrhea: none. Cyclic symptoms include none. Denies intermenstrual bleeding, spotting, or abnormal discharge. Denies pelvic pain. Patient declines STD testing today. Complaints today: none Relationship status: in a relationship The patient reports that there is not domestic violence in her life. 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 Non-smoker Children YES How many Two Current contraception: none History of abnormal Pap smear: yes - + other high risk HPV 2022 Last pap: 2022 Regular self breast exam: no Last mammogram: n/a Family history of breast cancer: no Family history of uterine or ovarian cancer: no Family history of pancreatic or prostate cancer: no Family history of colon cancer: no HPV vaccinated: No PHQ9 depression screenin LMP 08/16/2024 OB History 2 Para 2 Term AB Living SAB IAB Ectopic Multiple Live Births The following portions of the patient's history were reviewed and updated as appropriate: allergies, current medications, past family history, past medical history, past social history, past surgical history and problem list. MEDICAL HX Past Medical History: Diagnosis Date Abnormal Pap smear of cervix Depression Disease of thyroid gland HPV (human papilloma virus) infection Migraine SURGICAL HX Past Surgical History: Procedure Laterality Date SECTION CHOLECYSTECTOMY COLPOSCOPY FAMILY HX Family History Problem Relation Age of Onset Stroke Paternal Grandmother Diabetes Maternal Grandfather Hypertension Father MEDS Current Outpatient Medications Medication Sig Dispense Refill buPROPion XL (WELLBUTRIN XL) 300 mg 24 hr tablet Take 1 tablet (300 mg total) by mouth in the morning. levothyroxine (SYNTHROID, LEVOTHROID) 50 MCG tablet Take 2 tablets (100 mcg total) by mouth in the morning. liothyronine (CYTOMEL) 5 MCG tablet Take 1 tablet (5 mcg total) by mouth in the morning. propranolol LA (INDERAL LA) 60 mg 24 hr capsule Take by mouth daily. SUMAtriptan (IMITREX) 100 mg tablet TAKE 1 TABLET BY MOUTH at the onset OF headache. May repeat 1 (ONE) TABLET in 1 (ONE) HOUR Max 2 (TWO) doses per 24 hrs No current facility-administered medications for this visit. ALLERGIES No Known Allergies Review of Systems Constitutional: Negative. Respiratory: Negative. Negative for chest tightness and shortness of breath. Cardiovascular: Negative. Negative for chest pain and palpitations. Gastrointestinal: Negative. Negative for constipation, diarrhea, nausea and vomiting. Endocrine: Negative. Genitourinary: Negative. Negative for menstrual problem and pelvic pain. Musculoskeletal: Negative. Skin: Negative. Allergic/Immunologic: Negative. Neurological: Positive for headaches. Hematological: Negative. Psychiatric/Behavioral: Negative. Objective BP 118/80 Ht 165.1 cm (5' 5 ) Wt 82.1 kg (181 lb) LMP 08/16/2024 BMI 30.12 kg/m Physical Exam Vitals and nursing note reviewed. Constitutional: Appearance: Normal appearance. HENT: Head: Normocephalic and atraumatic. Cardiovascular: Rate and Rhythm: Normal rate and regular rhythm. Pulses: Normal pulses. Heart sounds: Normal heart sounds. Pulmonary: Effort: Pulmonary effort is normal. Breath sounds: Normal breath sounds. Chest: Breasts: Breasts are symmetrical. Right: Normal. No mass, skin change or tenderness. Left: Normal. No mass, skin change or tenderness. Abdominal: General: Bowel sounds are normal. Palpations: Abdomen is soft. Genitourinary: General: Normal vulva. Labia: Right: No rash or lesion. Left: No rash or lesion. Vagina: Normal. Cervix: Normal. Uterus: Normal. Not enlarged and not tender. Adnexa: Right adnexa normal and left adnexa normal. Right: No mass, tenderness or fullness. Left: No mass, tenderness or fullness. Musculoskeletal: General: Normal range of motion. Cervical back: Normal range of motion and neck supple. Skin: General: Skin is warm and dry. Neurological: Mental Status: She is alert and oriented to person, place, and time. Psychiatric: Mood and Affect: Mood normal. Speech: Speech normal. Behavior: Behavior normal. Thought Content: Thought content normal. Judgment: Judgment normal. Assessment/Plan: Vincenzo was seen today for gynecologic exam. Diagnoses and all orders for this visit: Well woman exam with routine gynecological exam Encounter for screening mammogram for breast cancer - Mammography screening bilateral with CAD; Future Cervical smear, as part of routine gynecological examination - Pap Smear; Future - High risk HPV w/sydni; Future Standardized adult depression screening tool completed BMI is above average; Discussed eating tips for weight loss and and exercise steps. Breast self exam technique reviewed and patient encouraged to perform self-exam monthly. Discussed healthy lifestyle modifications. Educational material distributed. Follow up in 1 year for annual electronic prepress technician exam. Follow up as needed. Await pap. Discussed ASCCP screening guidelines. Discussed taking a multivitamin. Discussed Calcium and Vitamin D for prevention of osteoporosis. Discussed recommendations for HPV vaccine between 9-45 yo. Can be received at [facility] or the [facility]. Discussed need for yearly mammogram after 40 yo. Discussed colon cancer screening recommendations to begin at 45 yo, patient to discuss with PCP. All questions answered. MICHELLE James APRN-CNP Lisa M Krotzer, APRN-CNP 08/23/24 1352 documented in this encounter [facility] Consultation note 12-22-2022 Note Date & Type Note Facility 12-22-2022 Note CONSULTATION CONSULTATION DATE: 12/22/2022 HISTORY OF PRESENT ILLNESS: This is a 37-year-old female who was referred to us by Dr. Navarro. The patient has had chronic migraine headaches for the last 26 years. The patient has been seen by a neurologist and has gone through a plethora of medications without any success including the triptans, which she currently takes sumatriptan, also wellbutrin, Excedrin. The patient has tried propranolol. The patient states when she reached menarche, the headaches started. She has approximately 10-15 headaches a month. Laying down mitigates the pain. Stresses, smells, especially during her menstrual period aggravate the patient's pain. She has received Phenergan with Toradol and Norflex by Dr. Navarro on multiple occasions to help mitigate the patient's pain symptomatology. The patient also takes Imitrex; however, finds that she has difficulty when she does not take them. The patient has an MRI of her brain, which results are noted on to the chart. On cursory evaluation along the MRI sagittal cuts, one is able to see inflammation along the OA and also at the level of C2-3. The patient's PAST MEDICAL HISTORY / SURGICAL HISTORY / REVIEW OF SYSTEMS are noted on the chart, along with the MEDICATION LIST, ALLERGIES and RADIOLOGICAL IMAGES. PHYSICAL EXAM: Upon physical examination, this is a pleasant, cooperative female, who does not appear to be in any acute distress. VITAL SIGNS: Stable at 138/84 with a heart rate of 86. At a height of 5'5 , the patient weighs 80 kg. FOCUSED EVALUATION: Facial symmetry is maintained. Range of motion is maintained. Extension, compression, direct palpation along the posterior elements, high along the splenius capitis muscle aggravate and reproduce a component of the patient's headaches. Fullness is noted along the C2-3 facet. Tenderness is present along the occipitalis. Point tenderness is noted along the right temporalis, where the patient states substantial portion of her headaches are placed. This is approximately in the medial aspect at the insertion point, along the parietal bone. Incongruities are felt at this point, and palpatory reproduction of the site is noted. Upper extremity strength is intact. Range of motion in the cervical spine is intact. Remainder of the physical exam is noncontributory. IMPRESSION: Current working diagnosis on the patient is history of chronic migraines; 10-15 episodes a month, interfering in her life. The patient works in the [employer] system. Cervical spondylosis at the level of C2-3. Right temporalis scar tissue and/or neuroma palpable. PLAN: We will get an x-ray of the cervical spine. In the meantime, the patient will use clove oil topically, applying the clove oil to the temporalis region on the right hand side pin point, to see whether she can mitigate the pain symptomatology. Along with this, the patient will apply heat rub to her cervical spine. We shall look for authorization from the insurance company for a trigger point along the temporalis and the splenius capitis muscle bilaterally. X-ray of the cervical spine has been ordered. CC: Lizeth Navarro M.D. [facility] Evaluation note 06-10-2022 Note Date & Type Note Facility 06-10-2022 Evaluation note Encounter Date Diagnosis Assessment Notes May, Acute nonintractable headache, unspecified headache type (ICD-10 - R51.9) Headache home care material was printed Drink plenty fluids, get plenty of rest. Go home and go to bed. Take Benadryl 25 mg prior to going to bed. Follow-up with your family physician if no improvement in 2 to 3 days. Go to the ER for worsening symptoms or concerns. May, Nausea (ICD-10 - R11.0) [place] Other Evaluation note Note Date & Type Note Facility Evaluation note Diagnosis Heterogeneously dense tissue of both breasts on mammography- Primary documented in this encounter [facility] Evaluation note Note Date & Type Note Facility Evaluation note Diagnosis Well woman exam with routine gynecological exam- Primary Routine gynecological examination Encounter for screening mammogram for breast cancer Cervical smear, as part of routine gynecological examination Screening for malignant neoplasm of the cervix Standardized adult depression screening tool completed documented in this encounter [facility] Evaluation note Note Date & Type Note Facility Evaluation note Diagnosis Onset Date Resolution Migraine headache acute Februar y 2024 2:27pm [facility] Work Phone: Instructions Note Date & Type Note Facility Instructions Not on filedocumented in this en counter [facility] Instructions Attachments Note Date & Type Note Facility Instructions The following attachments cannot be sent through Care Everywhere.How to Perform Breast Self-Examination (Thai)Calcium and vitamin D for bone health (Thai)documented in this encounter [facility] Summary Purpose Family History No Family History Records FoundNo Family History Records FoundNo Family History Records FoundNo Family History Records Found Advance Directives Advance Directive Response Recorded Date/ Time Advance Directives No April 25 4:34pm Reason for Referral Specialty Diagnoses / Procedures Referred By Shahid moraes Referred To Contact Radiology Diagnoses Heterogeneously dense tissue of both breasts on mammography Procedures NM Molecular breast imaging localization limited area Radha Lamb, COMIC BOOK WRITER-ASSISTANT CASE MANAGER [address] [place] [address] Referral ID Status Reason Start Date Expiration Date V isits Requested Visits Authorized [id number] Pending Review 08/31/2024 08/31/2025 5 5 Chief Complaint and Reason for Visit Chief Complaint Admit Date Migraine January 16, 2025 2:27pm Reason for Visit Admit Date Migraine headache January 16, 2025 2:27pm Additional Source Comments INFORMATION SOURCE (unrecogn ized section and content) DATE CREATED AUTHOR 12/14/2019 [facility] DATE CREATED AUTHOR AUTHOR'S ORGANIZ ATION 04/13/2023 [facility] DATE CREATED AUTHOR AUTHOR'S ORGANIZ ATION 06/21/2023 [facility] DATE CREATED AUTHOR AUTHOR'S ORGANIZ ATION 09/18/2024 [facility] REASON FOR VISIT (unrecogniz ed section and content) Reason Comments Gynecologic Exam PT IS HERE FOR ANNUA L Care Teams (unrecognized sec tion and content) Voltmeter Operator Relationship Specialty Start Date End Date Lizeth Navarro MD PCP - General 06/29/23 Voltmeter Operator Relationship Specialty Start Date End Date Lizeth Navarro MD PCP - General 06/29/23 Team Status: Active Member Role Status Dates Lizeth Navarro MD Primary Care Provider Active Team Status: Inactive Member Role Status Dates Lizeth Navarro MD Primary Care Provider Active Start: January 16, 2025 End: January 16, 2025 Adelina Colon APRN Attending Provider Active Start: January 16, 2025 End: January 16, 2025 Goals (unrecognized section and content) Goals may be documented in a n alternate section FOR RECORDS PERTAINING TO PATIENTS WHO ARE OR HAVE BEEN ENROLLED IN A CHEMICAL DEPENDENCY/SUBSTANCEABUSE PROGRAM, SOME INFORMATION MAY BE OMITTED. This clinical summary was aggregated from multiple sources. Caution should be exercised in using it in the provision of clinical care. This summary normalizes information from multiple sources, and as a consequence, information in this document may materially change the coding, format and clinical context of patient data. In addition, data may be omitted in some cases. CLINICAL DECISIONS SHOULD BE BASED ON THE PRIMARY CLINICAL RECORDS. [facility] [email or web address] [facility]. provides no warranty or guarantee of the accuracy or completeness of information in this document.
[2025-02-13] MEDS: SUMATRIPTAN SUCCINATE 6 MG/0.5 ML VIAL SUBQ (07:17)
[2025-02-13] MEDS: KETOROLAC TROMETHAMINE 30 MG/ML VIAL 15 MG IVP (07:17)
[2025-02-13] MEDS: PROMETHAZINE HCL 25 MG in 0.9 % SODIUM CHLORIDE 50 ML 204 MG IV (07:18)
--- NOTE | 2025-02-13 07:21 | ED.GENADUL1 ---
HPI HPI - General Adult General Chief complaint: Headache Stated complaint: HEADACHE Time Seen by Provider: 02/13/25 07:02 Source: patient Mode of arrival: walk-in Limitations: no limitations History of Present Illness HPI narrative: The patient is a 39-year-old female coming to the ER with a complaint of headache. She have a history of migraine and she ran out of her Imitrex usually gets at least 3-4 episodes every month and she take 9 tablets total for her migraine Patient complaining of right-sided headache associated with photosensitivity and nausea which her usual symptoms with migraine, no exacerbating factors no fever chills or any other concern. Related Data Allergies Allergy/AdvReac Type Severity Reaction Status Date / Time No Known Drug Allergies Allergy Verified 02/13/25 06:52 Opioid HPI Opioid Management Most Recent Opioid Data: No Data to Display PFSH PFSH Social History Little interest or pleasure in doing things: not at all Feeling down, depressed, or hopeless: not at all Exam Narrative Exam Narrative: Nurses notes and vital signs reviewed and patient is not hypoxic. General: Well-appearing and in no apparent distress. Skin: Warm, dry, no pallor noted. No rash. Head: Normocephalic, atraumatic. Neck: Supple, non-tender. Neurological: A&O x4. No cranial nerve dysfunction observed. No truncal ataxia. Moves all extremities. Sensation intact. Psychiatric: Cooperative and interactive. Normal mood and affect. Constitutional Vital Signs, click to edit/add: Last Vital Signs Temp 98.4 F 02/13/25 06:52 Pulse 104 H 02/13/25 06:52 Resp 18 02/13/25 06:52 BP 112/94 H 02/13/25 06:52 Pulse Ox 95 02/13/25 06:52 Course Vital Signs Vital signs: Vital Signs Temperature 98.4 F 02/13/25 06:52 Pulse Rate 104 H 02/13/25 06:52 Respiratory Rate 18 02/13/25 06:52 Blood Pressure 112/94 H 02/13/25 06:52 Pulse Oximetry 95 02/13/25 06:52 Temperature 98.4 F 02/13/25 06:52 Pulse Rate 104 H 02/13/25 06:52 Respiratory Rate 18 02/13/25 06:52 Blood Pressure 112/94 H 02/13/25 06:52 Pulse Oximetry 95 02/13/25 06:52 Medical Decision Making MDM Narrative Medical decision making narrative: The patient was provided with a Toradol and again injection in addition to Imitrex 1 dose here in the ER After a while the patient was feeling better and she was discharged She will get a refill and follow-up with her primary care as outpatient The patient is to follow up with primary care physician in next 2-3 days or to return to the emergency department should any of the signs or symptoms worsen or new symptoms develop. The patient agrees with the following Diagnosis and Treatment plan and the patient will be discharged home. Discharge Plan Discharge Chief Complaint: Headache Clinical Impression: Migraine Patient Disposition: Home, Self-Care Time of Disposition Decision: 07:44 Condition: Good Print Language: Nicaraguan Instructions: Migraine Headache (ED) Referrals: Dhaval Navarro MD [Primary Care Provider] - 1 week
== END 2025-02-13 08:05 | disposition home or self-care (01) ==
PROVIDERS: Emergency Provider Emergency Medicine; PCP Family Medicine
DX: G43.909 Migraine, unspecified, not intractable, without status migrainosus (principal)
CPT/HCPCS: 96365; 96372; 96375; 99284; J1885; J2550; J3030

== ENCOUNTER 2025-03-07 13:33 | Outpatient (OUT) | payer BC, SELFPAY ==
[2025-03-07 16:16] LABS: Free T3 2.12 pg/mL (2.18-3.98); Thyroid Stimulating Hormone 8.393 uIU/mL (0.358-3.740)
== END 2025-03-07 13:34 | disposition home or self-care (01) ==
LOC: LAB 13:33
PROVIDERS: PCP Family Medicine; Visit Provider Family Medicine
DX: E03.9 Hypothyroidism, unspecified (principal)
CPT/HCPCS: 36415; 84436; 84443; 84481

== ENCOUNTER 2025-03-07 14:59 | Outpatient (OUT) | payer BC, SELFPAY ==
--- NOTE | 2025-03-07 15:01 | US_ITS ---
The [address] [address] Patient Name: VINCENZO BAGLEY MRN: [id number] date: 1985 Sex: F Assigned Patient Location: [place] Current Patient Location: Accession/Order Number: [id number] Exam Date: 03/07/2025 15:42 Report Date: 03/07/2025 15:43 At the request of: LIZETH KUMAR MD Procedure: US thyroid Thyroid ultrasound Reason for exam: Thyroid nodule Comparison: none Technique: Grayscale and color Doppler images of the thyroid gland were obtained. Findings: The right lobe measures 4.7 x 1.2 x 0.9 cm. The left lobe measures 3.4 x 1.1 x 0.9 cm. Isthmus measures 10 mm. The thyroid gland is homogeneous in echotexture without nodule or hyperemia. US/US thyroid Impression: Unremarkable thyroid ultrasound. No ultrasound evidence of nodule. Impression dictated by: Costa Vazquez Jr., D.O.03/07/2025 3:43 PM Dictation Location: [place] [address] Electronically authenticated by: [id number] Date: 03/07/2025 15:43
== END 2025-03-07 15:00 | disposition home or self-care (01) ==
LOC: US 14:59
PROVIDERS: PCP Family Medicine; Visit Provider Family Medicine
DX: E03.9 Hypothyroidism, unspecified (principal); E04.1 Nontoxic single thyroid nodule
CPT/HCPCS: 36415; 76536; 84436; 84443; 84481

== ENCOUNTER 2025-03-24 14:58 | Emergency (ER) | payer BC, SELFPAY ==
[2025-03-24 15:14] VITALS: BP 154/82; PULSE 78; TEMP 36.6; O2SAT 98; BMI 26.5
--- NOTE | 2025-03-24 15:20 | ED_ITS ---
HPI HPI - General Adult General Chief complaint: Headache Stated complaint: Headache Time Seen by Provider: 03/24/25 15:15 Source: patient Mode of arrival: walk-in Limitations: no limitations History of Present Illness HPI narrative: 39-year-old female presents for headache. She describes it as a migraine type headache which she has had in the past. Its across her forehead and was not a ssociated with any trauma or fever or stiff neck. She took Imitrex but it did not help. No localized weakness. She has been nauseous and has been vomiting. She reports that Toradol usually helps her. Related Data Allergies Allergy/AdvReac Type Severity Reaction Status Date / Time No Known Drug Allergies Allergy Verified 02/13/25 06:52 Opioid HPI Opioid Management Most Recent Opioid Data: No Data to Display Review of Systems ROS Narrative A ten point review of systems is negative except as noted above. PFSH PFSH Social History Little interest or pleasure in doing things: not at all Feeling down, depressed, or hopeless: not at all Exam Narrative Exam Narrative: Nurses note and vital signs reviewed and patient is not hypoxic. General: The patient appears well and in no apparent distress. Patient is resting comfortably on cart. Skin: Warm, dry, no pallor noted. There is no rash noted. Head: Normocephalic, atraumatic; neck supple with no nuchal rigidity Eye: Normal conjunctiva, no drainage, EOMI. PERRL Ears, Nose, Mouth, and Throat: oral mucosa is moist. Nares patent. Cardiovascular: Regular Rate and Rhythm Respiratory: Patient is in no distress, no accessory muscle use, lungs are clear to auscultation, no wheezing, rales or rhonchi Back: non-tender, no CVA tenderness bilaterally to percussion. GI: Soft and nontender Musculoskeletal: No joint swelling Neurological: A&O x4, normal speech; moves all 4 extremities well. Psychiatric: Cooperative Constitutional Vital Signs, click to edit/add: Last Vital Signs Temp 97.9 F 03/24/25 15:14 Pulse 78 03/24/25 15:14 Resp 18 03/24/25 15:14 BP 154/82 H 03/24/25 15:14 Pulse Ox 98 03/24/25 15:14 O2 Del Method Room Air 03/24/25 15:14 Course Vital Signs Vital signs: Vital Signs Temperature 97.9 F 03/24/25 15:14 Pulse Rate 78 03/24/25 15:14 Respiratory Rate 18 03/24/25 15:14 Blood Pressure 154/82 H 03/24/25 15:14 Pulse Oximetry 98 03/24/25 15:14 Oxygen Delivery Method Room Air 03/24/25 15:14 Temperature 97.9 F 03/24/25 15:14 Pulse Rate 78 03/24/25 15:14 Respiratory Rate 18 03/24/25 15:14 Blood Pressure 154/82 H 03/24/25 15:14 Pulse Oximetry 98 03/24/25 15:14 Oxygen Delivery Method Room Air 03/24/25 15:14 Medical Decision Making MDM Narrative Medical decision making narrative: The patient was given IV Toradol, IV Solu-Medrol, ODT Zofran, and IV fluids and she feels much better and is able to be discharged home. Treatment diagnosis and follow-up were discussed with the patient. I have no clinical suspicion of acute intracranial pathology. Differential Diagnosis Differential Diagnosis: Migraine headache, nonspecific headache, intracranial hemorrhage Discharge Plan Discharge Chief Complaint: Headache Clinical Impression: Migraine Patient Disposition: Home, Self-Care Time of Disposition Decision: 16:32 Condition: Good Mode of Transportation: Private Vehicle Print Language: Albanian Instructions: Migraine Headache (ED) Referrals: Dhaval Navarro MD [Primary Care Provider] - 1 week
[2025-03-24] MEDS: METHYLPREDNISOLONE SOD SUCC PF 125 MG/2 ML VIAL IVP (15:30)
[2025-03-24] MEDS: 0.9 % SODIUM CHLORIDE 1,000 ML 1000 ML IV (15:31)
[2025-03-24] MEDS: ONDANSETRON PF 4 MG/2 ML VIAL IV (15:31)
[2025-03-24] MEDS: KETOROLAC TROMETHAMINE 30 MG/ML VIAL IVP (15:31)
== END 2025-03-24 16:50 | disposition home or self-care (01) ==
PROVIDERS: Emergency Provider Emergency Medicine; PCP Family Medicine
DX: G43.909 Migraine, unspecified, not intractable, without status migrainosus (principal)
CPT/HCPCS: 96361; 96374; 96375; 99284; J1885; J2405; J2919

== ENCOUNTER 2025-04-01 22:54 | Emergency (ER) | payer BC, SELFPAY ==
[2025-04-01] VITALS (7 sets, daily range): BP systolic 130–152; BP diastolic 81–101; PULSE 81–85; TEMP 36.7; O2SAT 100; BMI 25.8
--- NOTE | 2025-04-01 23:52 | PC.NURSE ---
complains of fast heart onset tonight around 10: 00 pm while sitting at home. this patient voices she has a episode like early this year. this patient voices no other complaints or needs and no signs of distress
--- NOTE | 2025-04-01 23:54 | ED_ITS ---
HPI - Arrhythmia/Palpitations General Chief Complaint: Arrhythmia/Palpitations Stated Complaint: FAST HEART RATE Time Seen by Provider: 04/01/25 23:49 Source: patient Mode of arrival: walk-in Limitations: no limitations History of Present Illness HPI narrative: The patient is a very pleasant 39-year-old female who presents to the emergency department through triage. Patient is coming in today because she felt like her heart was rapid and racing. Her symptom onset was around 10 PM. She stated that her it was rapid but not necessarily irregular. She states it almost felt like he would have anxiety but she was not nervous or anxious about anything. She stated it felt a little tight when she tried to take a satisfying breath. Patient denies any acute coronary syndrome. She denies any caffeine consumpti on. She does have a history of hypothyroidism and does take thyroid medication for that recently has been adjusted. Patient denies any heavy intake of caffeine or coffee. She has been drinking water appropriately. She denies any syncopal sensations. No chest pain. Patient states that this is never happened to her before. No known history of SVT or atrial fibrillation. Symptoms are moderate in severity and now have resolved by the time the been seen emerged department. Related Data Previous Rx's ?Medication ?Instructions ?Recorded ondansetron 4 mg disintegrating 4 mg PO Q6H PRN nausea and 03/24/25 tablet vomiting #20 tabs Allergies Allergy/AdvReac Type Severity Reaction Status Date / Time No Known Drug Allergies Allergy Verified 04/01/25 23:13 Review of Systems ROS Narrative 10 Systems were reviewed, and unless not ed in the HPI, all other systems are reviewed, unremarkable, or noncontributory. PFSH PFS Social History Little interest or pleasure in doing things: not at all Feeling down, depressed, or hopeless: not at all Exam Narrative Exam Narrative: Prior to examining the patient, I have washed with hospital approved and provided Antiseptic Hand It Sales Representative and have also applied gloves.? Prior to touching the patient, I asked for consent to examine the patient.? General: Alert and oriented, well nourished, mild distress. Eye: PERRL, EOMI, normal conjunctiva. HENT: Normocephalic, normal hearing, moist oral mucosa, no scleral icterus, no sinus tenderness. Neck: Supple, non-tender, no carotid bruits, no JVD, no lymphadenopathy. Lungs: Clear to auscultation and percussion, non-labored respiration. Heart: Normal rate, regular rhythm, no murmur, gallop or edema. Abdomen: Soft, non-tender, non-distended, normal bowel sounds, no masses. Musculoskeletal: Normal range of motion and strength, no tenderness or swelling. Skin: Skin is warm, dry and pink, no rashes or lesions. Neurologic: Awake, alert, and oriented X3, CN II-XII intact. Psychiatric: Cooperative, appropriate mood and affect.? Following the conclusion of the examination, I have washed my hands thoroughly after removing examination gloves. Constitutional Vital Signs, click to edit/add: Last Vital Signs Temp 98.0 F 04/01/25 23:14 Pulse 72 04/02/25 01:08 Resp 19 04/02/25 01:08 BP 113/65 04/02/25 01:08 Pulse Ox 100 04/02/25 01:08 O2 Del Method Room Air 04/01/25 23:14 Course Course Hospital Course: Patient is a 39-year-old female who had episode of tachycardia prior to come to the emergency department. She is never had this before. Patient had investigative studies. No acute intervention needed to be occur. Vital Signs Vital signs: Vital Signs Temperature 98.0 F 04/01/25 23:14 Pulse Rate 83 04/01/25 23:14 Respiratory Rate 18 04/01/25 23:14 Blood Pressure 152/81 H 04/01/25 23:14 Pulse Oximetry 100 04/01/25 23:14 Oxygen Delivery Method Room Air 04/01/25 23:14 Temperature 98.0 F 04/01/25 23:14 Pulse Rate 72 04/02/25 01:08 Respiratory Rate 19 04/02/25 01:08 Blood Pressure 113/65 04/02/25 01:08 Pulse Oximetry 100 04/02/25 01:08 Oxygen Delivery Method Room Air 04/01/25 23:14 MDM - Arrhythmia/Palpitations MDM Narrative Medical decision making narrative: In summary the patient is a 39-year-old female who presented with acute onset of the tachyarrhythmia prior to arrival that resolved prior to arrival. It started when she was sitting on the couch and nonspecific activity and resolved on the drive to the hospital. Patient denies that she followed those are regular. She does not have a history of SVT or atrial fibrillation. She states that she did not feel anxious. She is not dehydrated. She has no history of Doodk-Gynbyglig-Rwwpi syndrome. No known arrhythmias in the family. Medical Records Attestation: I reviewed the patient's medical records. Lab Data Attestation: I reviewed the patient's lab results. Lab results narrative: Patient does not have any evidence of anemia or leukocytosis. Competence of metabolic panel is normal for any electrolyte, kidney, or liver dysfunction. Patient's TSH is normal. Magnesium is normal. Labs: Lab Results 04/01/25 Range/Units 23:35 WBC 7.8 (4.0-11.0) 10^3/uL RBC 3.98 L (4.20-5.40) 10^6/uL Hgb 12.3 (12.0-16.0) g/dL Hct 35.6 L (36.0-48.0) % MCV 89.4 (81.0-99.0) fL MCH 30.9 (26.7-34.0) pg MCHC 34.6 (29.9-35.2) g/dL RDW 12.4 (11.0-15.0) % Plt Count 272 (150-450) 10^3/uL MPV 10.9 (9.5-13.5) fL Neut % (Auto) 65.3 (43.0-75.0) % Lymph % (Auto) 24.0 (20.5-60.0) % [place] % (Auto) 9.0 (1.7-12.0) % Eos % (Auto) 0.9 (0.9-7.0) % Baso % (Auto) 0.5 (0.2-2.0) % Neut # (Auto) 5.1 (1.4-6.5) 10^3/uL Lymph # (Auto) 1.9 (1.2-3.8) 10^3/uL [place] # (Auto) 0.7 (0.3-0.8) 10^3/uL Eos # (Auto) 0.1 (0.0-0.7) 10^3/uL Baso # (Auto) 0.0 (0.0-0.1) 10^3/uL Abs Immat Gran (auto) 0.02 (0.00-0.03) 10^3/uL Imm/Tot Granulo (auto) 0.3 (0.0-0.5) % Sodium 136 (136-145) mmol/L Potassium 3.6 (3.5-5.1) mmol/L Chloride 103 (98-107) mmol/L Carbon Dioxide 29.6 (21.0-32.0) mmol/L Anion Gap 7.0 BUN 14.0 (7.0-18.0) mg/dL Creatinine 0.93 (0.55-1.02) mg/dL Est GFR ( Amer) >60 (>=60 mL/min/1.73m^2) Est GFR (Non-Af Amer) >60 (>=60 mL/min/1.73m^2) BUN/Creatinine Ratio 15.1 Glucose 87 (74-106) mg/dL Calcium 9.5 (8.5-10.1) mg/dL Magnesium 1.9 (1.8-2.4) mg/dL Total Bilirubin 0.4 (0.2-1.0) mg/dL AST 16 (15-37) U/L ALT 39 (14-59) U/L Alkaline Phosphatase 62 (46-116) U/L Total Protein 6.6 (6.4-8.2) g/dL Albumin 3.5 (3.4-5.0) g/dL Globulin 3.1 g/dL Albumin/Globulin Ratio 1.1 TSH & Free T4 Interp 2.936 (0.358-3.740) uIU/mL Imaging Data Chest x-ray: Attestation: I have reviewed the pertinent imaging results. Radiologist's impression: Negative for any acute cardiopulmonary process. ECG Data Attestation: ?I have reviewed the pertinent ECG results. ECG interpretation date: 04/01/25 ECG interpretation time: 23:33 Interpretation: Twelve-lead EKG reveals a normal sinus rhythm with a ventricular rate of 82 bpm. The VT interval and QRS duration are within normal limits. QTc is not prolonged. [place] is normal. No evidence of ST segment elevation or depression chest of infarction or ischemia. Summary: Normal EKG. Discharge Plan Discharge Chief Complaint: Arrhythmia/Palpitations Clinical Impression: Tachycardia Patient Disposition: Home, Self-Care Time of Disposition Decision: 01:44 Condition: Good Mode of Transportation: Private Vehicle Prescriptions / Home Meds: No Action ondansetron 4 mg tablet,disintegrating 4 mg PO Q6H PRN (Reason: nausea and vomiting) Qty: 20 0RF Print Language: Kazakh Instructions: Tachycardia (ED) Additional Instructions: Thank you for trusting me with your care today. At this time I am not certain as to why your heart was racing. Perhaps you should discuss with Dr. Navarro the possible need for a Holter monitor. If you have a watch that monitors your heart rate it would be advisable to wear that at this time. If your symptoms return get worsen or change please come to the ER. Please stay well-hydrated. Referrals: Dhaval Navarro MD [Primary Care Provider, Family Practice] - 1 week
--- NOTE | 2025-04-01 23:56 | ECG_ITS ---
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 Measurements Intervals [place] Rate: 82 P: 70 MI: 166 QRS: 59 QRSD: 74 T: 54 QT: 338 QTc: 376 Interpretive Statements [address] DEPRESSION Abnormal ECG Compared to ECG 11/22/2019 23:59:46 Sinus arrhythmia no longer present Electronically Signed On 04-02-2025 7:49:26 EDT by SOLITARIO AYOUB M.D.
[2025-04-02] VITALS (14 sets, daily range): BP systolic 108–115; BP diastolic 63–79; PULSE 70–89; TEMP 37.2; O2SAT 99–100
[2025-04-02 00:01] LABS: Basophils Percent Auto 0.5 % (0.2-2.0); Eosinophils Absolute Auto 0.1 10^3/uL (0.0-0.7); Eosinophils Percent Auto 0.9 % (0.9-7.0); Hematocrit 35.6 % (36.0-48.0); Hemoglobin 12.3 g/dL (12.0-16.0); Immature Granulocytes Abs Auto 0.02 10^3/uL (0.00-0.03); Immature Granulocytes Pct Auto 0.3 % (0.0-0.5); Lymphocytes Absolute Auto 1.9 10^3/uL (1.2-3.8); Mean Corpuscular HGB Conc 34.6 g/dL (29.9-35.2); Mean Corpuscular Hemoglobin 30.9 pg (26.7-34.0); Mean Corpuscular Volume 89.4 fL (81.0-99.0); Mean Platelet Volume 10.9 fL (9.5-13.5); Monocytes Absolute Auto 0.7 10^3/uL (0.3-0.8); Neutrophils Absolute Auto 5.1 10^3/uL (1.4-6.5); Neutrophils Percent Auto 65.3 % (43.0-75.0); Platelet Count 272 10^3/uL (150-450); Red Blood Count 3.98 10^6/uL (4.20-5.40); Red Cell Distribution Width 12.4 % (11.0-15.0); White Blood Count 7.8 10^3/uL (4.0-11.0)
[2025-04-02 00:12] LABS: Alanine Aminotransferase 39 U/L (14-59); Albumin Globulin Ratio 1.1; Albumin Level 3.5 g/dL (3.4-5.0); Alkaline Phosphatase 62 U/L (46-116); Aspartate Amino Transferase 16 U/L (15-37); BUN Creatinine Ratio 15.1; Bilirubin Total 0.4 mg/dL (0.2-1.0); Calcium 9.5 mg/dL (8.5-10.1); Carbon Dioxide 29.6 mmol/L (21.0-32.0); Chloride 103 mmol/L (98-107); Estimated GFR (African America >60 (>=60 mL/min/1.73m^2); Estimated GFR (Non-African Ame >60 (>=60 mL/min/1.73m^2); Globulin 3.1 g/dL; Glucose 87 mg/dL (74-106); Potassium 3.6 mmol/L (3.5-5.1); Sodium 136 mmol/L (136-145); Total Protein 6.6 g/dL (6.4-8.2)
[2025-04-02 00:20] LABS: Magnesium 1.9 mg/dL (1.8-2.4); TSH W/ REFLEX FT4 2.936 uIU/mL (0.358-3.740)
--- NOTE | 2025-04-02 01:59 | PC.NURSE ---
i gave this patient verbal and written discharge orders, this patient voices yes to understanding these. at time of discharge this patient vices no concerns and shows no signs of distress
== END 2025-04-02 01:56 | disposition home or self-care (01) ==
PROVIDERS: Emergency Provider Emergency Medicine; PCP Family Medicine
DX: R00.0 Tachycardia, unspecified (principal); E03.9 Hypothyroidism, unspecified; Z79.899 Other long term (current) drug therapy
CPT/HCPCS: 36415; 71046; 80053; 83735; 84443; 85025; 93005; 99285

== ENCOUNTER 2025-04-04 06:11 | Emergency (ER) | payer BC, SELFPAY ==
[2025-04-04 06:17] VITALS: BP 137/73; PULSE 90; TEMP 36.9; O2SAT 97; BMI 25.8
--- NOTE | 2025-04-04 06:30 | ED_ITS ---
HPI HPI - General Adult General Chief complaint: Headache Stated complaint: MIGRAINE Time Seen by Provider: 04/04/25 06:25 Source: patient Mode of arrival: ambulance History of Present Illness HPI narrative: history of migraines. May get up to 12 migraines a month. Usually treats with Imitrex. Did not take Imitrex this AM because she felt her heart rate was elevated and wasn't sure if it was safe to take Imitrex. Is nauseated but has not vomited. No fever, stiff neck or weakness/numbness of her extremities Related Data Home Medications ?Medication ?Instructions ?Recorded ?Confirmed bupropion HCl 300 mg 24 hr tablet, mg PO 04/04/25 extended release levothyroxine 75 mcg tablet mcg 04/04/25 propranolol 60 mg capsule,24 60 mg PO DAILY 04/04/25 0 04/04/25 hr,extended release (Inderal LA) Previous Rx's ?Medication ?Instructions ?Recorded ondansetron 4 mg disintegrating 4 mg PO Q6H PRN nausea and 03/24/25 tablet vomiting #20 tabs Allergies Allergy/AdvReac Type Severity Reaction Status Date / Time No Known Drug Allergies Allergy Verified 04/01/25 23:13 Opioid HPI Opioid Management Most Recent Opioid Data: Last Pain Scale 7 Today, 06:51 Last MAR Pain Assessment Today, 06:51 Review of Systems ROS Status of ROS 10 or more systems reviewed and unremark able except as noted in history and below PFSH PFS Social History Little interest or pleasure in doing things: not at all Feeling down, depressed, or hopeless: not at all Exam Constitutional Vital Signs, click to edit/add: Last Vital Signs Temp 98.4 F 04/04/25 06:17 Pulse 90 04/04/25 06:17 Resp 16 04/04/25 06:17 BP 137/73 04/04/25 06:17 Pulse Ox 97 04/04/25 06:17 O2 Del Method Room Air 04/04/25 06:17 Common normals: no apparent distress, average body habitus, oriented x3, no limitations, healthy appearing, alert and well nourished [facility] Common normals: normocephalic and head/scalp atraumatic Eye Common normals: PERRL and EOMs intact bilaterally Respiratory Common normals: normal respiratory effort, no retractions, no use of accessory muscles and clear to auscultation bilaterally Cardio Common normals: regular rate, regular rhythm, S1 normal heart sound and S2 normal heart sound Extremity Common normals: normal to inspection and full ROM Neuro Common normals: oriented x3, CN's II-XII intact bilaterally, moves all extremities and no focal motor deficits Psych Appearance: grossly normal Course Vital Signs Vital signs: Vital Signs Temperature 98.4 F 04/04/25 06:17 Pulse Rate 90 04/04/25 06:17 Respiratory Rate 16 04/04/25 06:17 Blood Pressure 137/73 04/04/25 06:17 Pulse Oximetry 97 04/04/25 06:17 Oxygen Delivery Method Room Air 04/04/25 06:17 Temperature 98.4 F 04/04/25 06:17 Pulse Rate 90 04/04/25 06:17 Respiratory Rate 16 04/04/25 06:17 Blood Pressure 137/73 04/04/25 06:17 Pulse Oximetry 97 04/04/25 06:17 Oxygen Delivery Method Room Air 04/04/25 06:17 Medical Decision Making MDM Narrative Medical decision making narrative: presents with her typical migraine. labs, and medications ordered. care transferred to oncoming physician at change of shift Discharge Plan Discharge Patient Disposition: Still a Patient
[2025-04-04] MEDS: KETOROLAC TROMETHAMINE 30 MG/ML VIAL IVP (06:51)
[2025-04-04] MEDS: METOCLOPRAMIDE HCL 10 MG/2 ML VIAL IVP (06:52)
[2025-04-04 06:54] LABS: Basophils Percent Auto 0.4 % (0.2-2.0); Eosinophils Absolute Auto 0.1 10^3/uL (0.0-0.7); Hematocrit 35.6 % (36.0-48.0); Hemoglobin 12.3 g/dL (12.0-16.0); Immature Granulocytes Abs Auto 0.01 10^3/uL (0.00-0.03); Immature Granulocytes Pct Auto 0.2 % (0.0-0.5); Lymphocytes Absolute Auto 1.4 10^3/uL (1.2-3.8); Lymphocytes Percent Auto 26.5 % (20.5-60.0); Mean Corpuscular HGB Conc 34.6 g/dL (29.9-35.2); Mean Corpuscular Hemoglobin 30.8 pg (26.7-34.0); Mean Platelet Volume 10.8 fL (9.5-13.5); Monocytes Absolute Auto 0.5 10^3/uL (0.3-0.8); Monocytes Percent Auto 8.7 % (1.7-12.0); Neutrophils Absolute Auto 3.3 10^3/uL (1.4-6.5); Neutrophils Percent Auto 63.2 % (43.0-75.0); Platelet Count 219 10^3/uL (150-450); Red Cell Distribution Width 12.4 % (11.0-15.0); White Blood Count 5.2 10^3/uL (4.0-11.0)
[2025-04-04 07:01] LABS: Anion Gap 13.4; BUN Creatinine Ratio 18.4; Calcium 8.9 mg/dL (8.5-10.1); Carbon Dioxide 25.5 mmol/L (21.0-32.0); Chloride 102 mmol/L (98-107); Estimated GFR (African America >60 (>=60 mL/min/1.73m^2); Estimated GFR (Non-African Ame >60 (>=60 mL/min/1.73m^2); Glucose 86 mg/dL (74-106); Potassium 3.9 mmol/L (3.5-5.1); Sodium 137 mmol/L (136-145)
[2025-04-04 07:20] VITALS: BP 109/76; PULSE 80; O2SAT 96
--- NOTE | 2025-04-04 07:21 | ED_ITS ---
HPI HPI - General Adult General Chief complaint: Headache Stated complaint: MIGRAINE Time Seen by Provider: 04/04/25 06:25 Source: patient Mode of arrival: ambulance History of Present Illness HPI narrative: 39-year-old female presented to the emergency department and was initially seen by Dr. Archuleta. The patient was signed out to me at change of shift after discussing the patient thoroughly with Dr. Archuleta. Please see his full history and physical exam. Related Data Home Medications ?Medication ?Instructions ?Recorded ?Confirmed bupropion HCl 300 mg 24 hr tablet, mg PO 04/04/25 extended release levothyroxine 75 mcg tablet mcg 04/04/25 propranolol 60 mg capsule,24 60 mg PO DAILY 04/04/25 0 04/04/25 hr,extended release (Inderal LA) Previous Rx's ?Medication ?Instructions ?Recorded ondansetron 4 mg disintegrating 4 mg PO Q6H PRN nausea and 03/24/25 tablet vomiting #20 tabs Allergies Allergy/AdvReac Type Severity Reaction Status Date / Time No Known Drug Allergies Allergy Verified 04/01/25 23:13 Opioid HPI Opioid Management Most Recent Opioid Data: Last Pain Scale 7 Today, 06:51 Last ED Pain Assessment Today, 07:19 Last MAR Pain Assessment Today, 06:51 PFS PFS Social History Little interest or pleasure in doing things: not at all Feeling down, depressed, or hopeless: not at all Exam Constitutional Vital Signs, click to edit/add: Last Vital Signs Temp 98.4 F 04/04/25 06:17 Pulse 80 04/04/25 07:20 Resp 20 04/04/25 07:20 BP 109/76 04/04/25 07:20 Pulse Ox 96 04/04/25 07:20 O2 Del Method Room Air 04/04/25 07:20 Course Vital Signs Vital signs: Vital Signs Temperature 98.4 F 04/04/25 06:17 Pulse Rate 90 04/04/25 06:17 Respiratory Rate 16 04/04/25 06:17 Blood Pressure 137/73 04/04/25 06:17 Pulse Oximetry 97 04/04/25 06:17 Oxygen Delivery Method Room Air 04/04/25 06:17 Temperature 98.4 F 04/04/25 06:17 Pulse Rate 80 04/04/25 07:20 Respiratory Rate 20 04/04/25 07:20 Blood Pressure 109/76 04/04/25 07:20 Pulse Oximetry 96 04/04/25 07:20 Oxygen Delivery Method Room Air 04/04/25 07:20 Medical Decision Making MDM Narrative Medical decision making narrative: The patient was medicated with Toradol and Reglan and feels much improved now and is able to be discharged home. Treatment diagnosis and follow-up were discussed with the patient. Lab Data Lab results reviewed: Yes I reviewed the patient's lab results Labs: Lab Results 04/04/25 Range/Units 06:48 WBC 5.2 (4.0-11.0) 10^3/uL RBC 4.00 L (4.20-5.40) 10^6/uL Hgb 12.3 (12.0-16.0) g/dL Hct 35.6 L (36.0-48.0) % MCV 89.0 (81.0-99.0) fL MCH 30.8 (26.7-34.0) pg MCHC 34.6 (29.9-35.2) g/dL RDW 12.4 (11.0-15.0) % Plt Count 219 (150-450) 10^3/uL MPV 10.8 (9.5-13.5) fL Neut % (Auto) 63.2 (43.0-75.0) % Lymph % (Auto) 26.5 (20.5-60.0) % [place] % (Auto) 8.7 (1.7-12.0) % Eos % (Auto) 1.0 (0.9-7.0) % Baso % (Auto) 0.4 (0.2-2.0) % Neut # (Auto) 3.3 (1.4-6.5) 10^3/uL Lymph # (Auto) 1.4 (1.2-3.8) 10^3/uL [place] # (Auto) 0.5 (0.3-0.8) 10^3/uL Eos # (Auto) 0.1 (0.0-0.7) 10^3/uL Baso # (Auto) 0.0 (0.0-0.1) 10^3/uL Abs Immat Gran (auto) 0.01 (0.00-0.03) 10^3/uL Imm/Tot Granulo (auto) 0.2 (0.0-0.5) % Sodium 137 (136-145) mmol/L Potassium 3.9 (3.5-5.1) mmol/L Chloride 102 (98-107) mmol/L Carbon Dioxide 25.5 (21.0-32.0) mmol/L Anion Gap 13.4 BUN 14.0 (7.0-18.0) mg/dL Creatinine 0.76 (0.55-1.02) mg/dL Est GFR ( Amer) >60 (>=60 mL/min/1.73m^2) Est GFR (Non-Af Amer) >60 (>=60 mL/min/1.73m^2) BUN/Creatinine Ratio 18.4 Glucose 86 (74-106) mg/dL Calcium 8.9 (8.5-10.1) mg/dL Discharge Plan Discharge Chief Complaint: Headache Clinical Impression: Migraine Patient Disposition: Home, Self-Care Time of Disposition Decision: 07:21 Condition: Good Mode of Transportation: Private Vehicle Prescriptions / Home Meds: No Action ondansetron 4 mg tablet,disintegrating 4 mg PO Q6H PRN (Reason: nausea and vomiting) Qty: 20 0RF levothyroxine 75 mcg tablet bupropion HCl 300 mg tablet extended release 24 hr PO propranolol [Inderal LA] 60 mg capsule,extended release 24 hr 60 mg PO DAILY Print Language: Occitan Instructions: Migraine Headache (ED) Referrals: Dhaval Navarro MD [Primary Care Provider, Family Practice] - 1 week
== END 2025-04-04 07:33 | disposition home or self-care (01) ==
PROVIDERS: Internal Medicine; Emergency Provider Emergency Medicine; PCP Family Medicine
DX: G43.909 Migraine, unspecified, not intractable, without status migrainosus (principal)
CPT/HCPCS: 36415; 80048; 85025; 96374; 96375; 99284; J1885; J2765

== ENCOUNTER 2025-04-05 08:02 | Outpatient (OUT) | payer BC, SELFPAY ==
--- NOTE | 2025-04-05 08:00 | CA_ITS ---
Patient Name: VINCENZO BAGLEY MR#: [id number] : 1985 Exam Date: 04/05/2025 Ordering Doctor: DR LIZETH KUMAR . ECHOCARDIOGRAM REPORT PROCEDURE: CA ECHO DOPPLER COMPLETE INDICATIONS: Palpitation, hypothyroidism COMPARISON: None. DESCRIPTION: COMPLETE ECHOCARDIOGRAM Real-time transthoracic echocardiography with 2D, M-mode, spectral and color flow Doppler performed. QUALITY: Technical quality was good. LEFT VENTRICLE: Normal chamber size. Normal left ventricular wall thickness. Normal systolic function. LV EF: Normal left ventricular ejection fraction, (>55%). DIASTOLIC: Normal diastolic function. ATRIAL SEPTUM: LEFT ATRIUM: Normal chamber size. RIGHT ATRIUM: Normal chamber size. RIGHT VENTRICLE: Normal chamber size. Normal right ventricular systolic function. TRICUSPID VALVE: Normal mobility and thickness. No stenosis with trivial regurgitation. No evidence of pulmonary hypertension. RVSP 23 mmHg MITRAL VALVE: Normal mobility and thickness. No evidence of mitral valve stenosis. There is no mitral annular calcification. Trivial mitral regurgitation. AORTIC VALVE: Normal trileaflet appearance. No visible sclerosis. Normal leaflet mobility. No evidence of aortic valve stenosis. No aortic regurgitation. AORTIC ROOT: Normal diameter and appearance, measuring 2.9 cm. Ascending aorta is normal in size, measuring 2.7 cm. PULMONIC VALVE: Normal thickness and mobility. No stenosis. No regurgitation. PERICARDIUM: No evidence of pericardial effusion. IVC: Collapses with inspirations. IVC is normal in size. PLEURA: CONCLUSION: 1. Normal ventricular size and systolic function. LVEF is estimated at 60%. 2. Normal diastolic function. 3. No significant valvular dysfunction. 4. Normal right-sided pressures. Adult Echocardiography Procedure Report Left Ventricle LVEDD (3.7 - 5.6 cm): 3.88 cm LVESD (2.2 - 4.0 cm): 2.62 cm LVIVS thickness (0.6 - 1.2 cm): 0.75 cm LVPW thickness (0.5 - 1.0 cm): 0.78 cm e': 0.18 m/s E - e': 4.84 LVOT Max Gradient: 4.50 mm[Hg] LVOT Area (cm2): 1.06 m/s Peak Velocity (LVOT): 1.06 m/s Mean Velocity (LVOT): 0.68 m/s LVOT Diameter 2.06 cm Left Atrium LA Volume Index (2D A2C): 27.03 ml/m2 Left Atrium Systolic Dimension: 3.00 cm Mitral Valve MV E to A Ratio: 1.55 Mitral Valve A-Wave Peak Velocity: 0.57 m/s Mitral Valve E-Wave Peak Velocity: 0.89 m/s Right Ventricle Aorta AO Root Diam: 2.86 cm Ascending Ao Diam: 2.72 cm Aortic Valve AoV Area (Peak Sae): 2.66 cm2, 2.66 cm2 AoV Area (VTI): 2.63 cm2, 2.63 cm2 Peak Velocity(Antegrade Flow): 1.33 m/s Peak Gradient(Antegrade Flow): 7.06 mm[Hg] Mean Velocity(Antegrade Flow): 0.78 m/s Mean Gradient(Antegrade Flow): 3.14 mm[Hg] Velocity Time Integral: 27.43 cm Tricuspid Valve Peak Velocity (Regurgitant Flow): 1.68 m/s, 2.23 m/s Pulmonic Valve Mean Gradient: 1.71 mm[Hg] Mean Velocity: 0.62 m/s Peak Velocity: 0.88 m/s, 0.98 m/s Peak Gradient: 3.82 mm[Hg], 3.12 mm[Hg] Right Atrium Right Atrium Systolic Pressure: 27.26 ml, 27.26 ml Dictated by: Mino Chaney M.D. on 04/05/2025 at 21:05 Approved by: Mino Chaney M.D. on 04/05/2025 at 21:08
== END 2025-04-05 08:03 | disposition home or self-care (01) ==
LOC: CARD 08:02
PROVIDERS: PCP Family Medicine; Visit Provider Family Medicine
DX: R00.2 Palpitations (principal); E03.9 Hypothyroidism, unspecified
CPT/HCPCS: 93246; 93306

== ENCOUNTER 2025-04-12 18:34 | Emergency (ER) | payer BC, SELFPAY ==
[2025-04-12 18:40] VITALS: BP 133/74; PULSE 120; TEMP 36.8; O2SAT 100; BMI 25.5
--- NOTE | 2025-04-12 18:50 | ECG_ITS ---
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 Measurements Intervals [place] Rate: 109 P: 68 IN: 154 QRS: 55 QRSD: 74 T: 57 QT: 314 QTc: 378 Interpretive Statements [address] DEPRESSION abnormal ECG Compared to ECG 04/01/2025 23:30:51 No significant changes Electronically Signed On 04-12-2025 19:57:34 EDT by SOLITARIO AYOBU M.D.
--- NOTE | 2025-04-12 18:52 | ED.GENADUL1 ---
HPI HPI - General Adult General Chief complaint: Chest Pain Stated complaint: HEART IS RACING Time Seen by Provider: 04/12/25 18:50 Source: patient Mode of arrival: walk-in Limitations: no limitations History of Present Illness HPI narrative: The patient is a 39-year-old female who presents to the emergency department today for evaluation of concerns for palpitations. She endorses these have been ongoing over the past few weeks and states her primary care provider did order Holter monitoring which she turned in yesterday. She mentions today her palpitations seemed stronger and a little worse than where they have been before. She reports associated symptoms of feeling a little lightheaded. No syncopal episodes. She denies any chest pain, does endorse some mild shortness of breath with palpitations. No abdominal pain or nausea/vomiting/diarrhea. She does endorse a significant history of hypothyroid which she takes Synthroid for. She reports she is a non-smoker. No history of VTE. Related Data Home Medications ?Medication ?Instructions ?Recorded ?Confirmed bupropion HCl 300 mg 24 hr tablet, mg PO 04/04/25 extended release levothyroxine 75 mcg tablet mcg 04/04/25 propranolol 60 mg capsule,24 60 mg PO DAILY 04/04/25 04/04/25 hr,extended release (Inderal LA) Previous Rx's ?Medication ?Instructions ?Recorded ondansetron 4 mg disintegrating 4 mg PO Q6H PRN nausea and 03/24/25 tablet vomiting #20 tabs Allergies Allergy/AdvReac Type Severity Reaction Status Date / Time No Known Drug Allergies Allergy Verified 04/12/25 18:40 Opioid HPI Opioid Management Most Recent Opioid Data: Last Pain Scale 7 04/04/25, 06:51 Ur Phencyclidine Scrn, (NEGATIVE) Negative Today, 20:15 Review of Systems ROS Status of ROS 10 or more systems reviewed and unremarkable except as noted in history and below PFSH PFSH Social History Little interest or pleasure in doing things: not at all Feeling down, depressed, or hopeless: not at all Exam Narrative Exam Narrative: Constituational: Awake/ alert, no apparent distress, well hydrated HENMT: normocephalic, external ears normal, moist oral mucous membranes and oropharynx normal Eyes: EOMI and conjunctivae normal Neck: ROM intact Chest: inspection of chest normal Respiratory: Normal respiratory effort, clear to auscultation bilaterally Cardio: regular rate and regular rhythm GI: soft to palpation and non-tender Back: nontender MSK: ROM intact, +NVI Skin: no rashes or petechiae Neuro: no focal deficits Psych: mental status grossly normal Constitutional Vital Signs, click to edit/add: Last Vital Signs Temp 98.3 F 04/12/25 18:40 Pulse 99 H 04/12/25 18:54 Resp 18 04/12/25 18:40 BP 111/73 04/12/25 18:54 Pulse Ox 100 04/12/25 18:40 O2 Del Method Room Air 04/12/25 18:40 Course Vital Signs Vital signs: Vital Signs Temperature 98.3 F 04/12/25 18:40 Pulse Rate 120 H 04/12/25 18:40 Respiratory Rate 18 04/12/25 18:40 Blood Pressure 133/74 04/12/25 18:40 Pulse Oximetry 100 04/12/25 18:40 Oxygen Delivery Method Room Air 04/12/25 18:40 Temperature 98.3 F 04/12/25 18:40 Pulse Rate 99 H 04/12/25 18:54 Respiratory Rate 18 04/12/25 18:40 Blood Pressure 111/73 04/12/25 18:54 Pulse Oximetry 100 04/12/25 18:40 Oxygen Delivery Method Room Air 04/12/25 18:40 Medical Decision Making [facility] Narrative Medical decision making narrative: Patient is a well-appearing 39-year-old female with a significant history of hypothyroid who presented to the emergency department today for evaluation concerns for palpitations with recent turning of the Holter monitor yesterday. Initial examination vital signs overall stable with exception she has noted to be mildly tachycardic at times with heart rate of 90s to 100s. She otherwise does not appear to be exhibiting any ischemic symptoms and does appear euvolemic on exam. No obvious clinical evidence concerning for infectious processes such as URI. Orthostatic vital signs negative. EKG without acute changes and troponin negative x 1. Normal D-dimer. Chest x-ray stable per ER interpretation. Labs stable and showed no significant leukocytosis, anemia, thrombocytopenia. Electrolytes including renal and hepatic function stable. TSH within normal range. Urinalysis is negative for UTI and urine drug screen negative. Reevaluation patient continues to be well-appearing. Clinical impression palpitations. Discussed these findings with the patient including recommendations for supportive care. Advised on follow-up with patient's primary care provider for reevaluation. Discussed signs and symptoms of any worsening condition and when to consider reevaluation. Patient verbalized an understanding of this and is agreeable with the plan to be discharged home. Medical Records Medical records reviewed: Yes I reviewed the patient's medical records Lab Data Lab results reviewed: Yes I reviewed the patient's lab results Labs: Lab Results 04/12/25 04/12/25 Range/Units 19:05 20:15 WBC 6.6 (4.0-11.0) 10^3/uL RBC 3.76 L (4.20-5.40) 10^6/uL Hgb 11.7 L (12.0-16.0) g/dL Hct 33.5 L (36.0-48.0) % MCV 89.1 (81.0-99.0) fL MCH 31.1 (26.7-34.0) pg MCHC 34.9 (29.9-35.2) g/dL RDW 12.6 (11.0-15.0) % Plt Count 238 (150-450) 10^3/uL MPV 10.6 (9.5-13.5) fL Neut % (Auto) 70.2 (43.0-75.0) % Lymph % (Auto) 22.0 (20.5-60.0) % Dickens % (Auto) 6.7 (1.7-12.0) % Eos % (Auto) 0.3 L (0.9-7.0) % Baso % (Auto) 0.5 (0.2-2.0) % Neut # (Auto) 4.6 (1.4-6.5) 10^3/uL Lymph # (Auto) 1.5 (1.2-3.8) 10^3/uL Dickens # (Auto) 0.4 (0.3-0.8) 10^3/uL Eos # (Auto) 0.0 (0.0-0.7) 10^3/uL Baso # (Auto) 0.0 (0.0-0.1) 10^3/uL Abs Immat Gran (auto) 0.02 (0.00-0.03) 10^3/uL Imm/Tot Granulo (auto) 0.3 (0.0-0.5) % D-Dimer <0.19 (<=0.59) mg/L FEU Sodium 142 (136-145) mmol/L Potassium 3.3 L (3.5-5.1) mmol/L Chloride 105 (98-107) mmol/L Carbon Dioxide 26.9 (21.0-32.0) mmol/L Anion Gap 13.4 BUN 12.0 (7.0-18.0) mg/dL Creatinine 0.84 (0.55-1.02) mg/dL Est GFR ( Amer) >60 (>=60 mL/min/1.73m^2) Est GFR (Non-Af Amer) >60 (>=60 mL/min/1.73m^2) BUN/Creatinine Ratio 14.3 Glucose 103 (74-106) mg/dL Calcium 9.2 (8.5-10.1) mg/dL Total Bilirubin 0.3 (0.2-1.0) mg/dL AST 13 L (15-37) U/L ALT 25 (14-59) U/L Alkaline Phosphatase 59 (46-116) U/L Troponin I High Sens <4.0 L (4.0-51.3) pg/mL Total Protein 6.7 (6.4-8.2) g/dL Albumin 3.6 (3.4-5.0) g/dL Globulin 3.1 g/dL Albumin/Globulin Ratio 1.2 TSH & Free T4 Interp 1.252 (0.358-3.740) uIU/mL Urine Color Lt. yellow (YELLOW) Urine Clarity Clear (CLEAR) Urine pH 6.0 (5.0-9.0) Ur Specific Roberts <=1.005 A (1.005-1.025) Urine Protein Negative (NEG/TRACE) mg/dL Urine Glucose (UA) Negative (NEGATIVE) mg/dL Urine Ketones Negative (NEGATIVE) mg/dL Urine Occult Blood Small A (NEGATIVE) Urine Nitrite Negative (NEGATIVE) Urine Bilirubin Negative (NEGATIVE) Urine Urobilinogen 0.2 (0.2-1.0) EU/dL Ur Leukocyte Esterase Trace A (NEGATIVE) Urine RBC 0-2 (0-2) #/HPF Urine WBC 2-5 A (NONE SEEN) #/HPF Ur Squamous Epith Cells Few A (NONE/RARE) #/LPF Urine Crystals None seen (None Seen) #/HPF Urine Bacteria Small A (NONE SEEN) #/HPF Urine Casts None seen (NONE SEEN) #/LPF Urine Mucus None seen (NONE SEEN) Ur Culture Indicated? Yes-[facility] [place] Opiates Screen Negative (NEGATIVE) Ur Buprenorphine Scrn Negative (NEGATIVE) Ur Oxycodone Screen Negative (NEGATIVE) Urine Methadone Screen Negative (NEGATIVE) Ur Barbiturates Screen Negative (NEGATIVE) U Tricyclic Antidepress Negative (NEGATIVE) Ur Phencyclidine Scrn Negative (NEGATIVE) Ur Amphetamines Screen Negative (NEGATIVE) U Methamphetamines Scrn Negative (NEGATIVE) U Benzodiazepines Scrn Negative (NEGATIVE) Urine Cocaine Screen Negative (NEGATIVE) U Cannabinoids Screen Negative (NEGATIVE) Imaging Data Chest x-ray: Attestation: I have reviewed the pertinent imaging results. ECG Data Attestation: I personally reviewed and interpreted this ECG as follows: (EKG shows ST with HR 109, no acute/ischemic changes) Discharge Plan Discharge Chief Complaint: Chest Pain Clinical Impression: Palpitations Patient Disposition: Home, Self-Care Prescriptions / Home Meds: No Action ondansetron 4 mg tablet,disintegrating 4 mg PO Q6H PRN (Reason: nausea and vomiting) Qty: 20 0RF levothyroxine 75 mcg tablet bupropion HCl 300 mg tablet extended release 24 hr PO propranolol [Inderal LA] 60 mg capsule,extended release 24 hr 60 mg PO DAILY Print Language: [place] Instructions: Heart Palpitations (ED) Additional Instructions: Stay hydrated and drink plenty of fluids. Limit any caffeinated beverages, alcohol, and avoid smoking or being around to those that do. Open primary care provider for reevaluation as discussed. May return to the ER with any new or worsening symptoms/concerns. Referrals: Dhaval Navarro MD [Primary Care Provider, [facility]] - 1 week Discharge Date/Time: 04/12/25 21:06
[2025-04-12 18:54] VITALS: BP 111/73; BP 113/74; BP 120/82; PULSE 97; PULSE 98; PULSE 99
--- OUTSIDE RECORDS SUMMARY | 2025-04-12 19:11 | XMS_ITS | CCD ---
Author Organization [facility] Care Team Providers Care Laboratory Monitor Name Role Phone Hali Myles Unavailable JOSÉ ., DR STANLEY Primary Care Unavailable MARTE ., DR JOSEPH Lyles Attending Unavailable MARTE ., DR JOSEPH Lyles Consulting Unavailable MARTE ., DR JOSEPH Lyles Admitting Unavailable JOSÉ ., DR STANLEY Primary Care Unavailable HOGumaro ., DR STANLEY Admitting Unavailable JOSÉ ., DR STANLEY Attending Unavailable JOSÉ ., DR STANLEY Consulting Unavailable Provider, None Primary Care Unavailable LIZETH NAVARRO Referring Unavailable LIZETH NAVARRO Primary Care Unavailable RADHA LAMB Referring Unavailable LIZETH NAVARRO Primary Care Unavailable RADHA LAMB Referring Unavailable LIZETH NAVARRO Primary Care Unavailable Lizeth Navarro MD Primary Care Provider [phone] Lizeth Navarro MD Primary Care Provider [phone] KAROL OLIVO Attending Unavailable LIZETH NAVARRO Referring Unavailable Medications Current Medications Medication Drug Class(es) Dates Sig (Normalized) Sig (Original) Atogepant (Qulipta) 60 MG tablet (2 sources) Start: 04-10-2025 take 1 tablet by mouth once daily Atogepant (Qulipta) 60 MG tablet Indications: Intractable chronic migraine without aura and without status migrainosus (CMS/HCC) Take 60 mg by mouth Daily 30 tablet 2 04/10/2025 Active 24 hr buPROPion hydrochloride 300 mg extended release oral tablet (5 sources) Aminoketone Start: 03-30-2022 take 1 tablet by mouth every twenty-four hours Bupropion Hcl 300 mg tablet extended release 24 hr Active MG PO April 24, 2024 11:00pm take 1 tablet by mouth once joseph y buPROPion XL (Wellbutrin XL) 300 MG 24 hr tablet Take 300 mg by mouth Daily Active levothyroxine sodium 0.05 mg oral tablet (5 sources) l-Thyroxine Start: 04-18-2022 take 2 tablets by mouth once daily Levothyroxine 50 mcg tablet Active 100 MCG PO Daily April 24, 2024 11:00pm take 1 tablet by mouth before me altime levothyroxine (Synthroid, Levoxyl) 50 MCG tablet Take 50 mcg by mouth in the morning. Take before meals. Active liothyronine (3 sources) l-Triiodothyronine Start: 04-25-2024 take 1 tablet by mouth once daily Liothyronine 5 mcg tablet Active 5 MCG PO Daily April 24, 2024 11:00pm Start: 04-22-2022 take 1 tablet by caren in the morning liothyronine (CYTOMEL) 5 MCG tablet Take 1 tablet (5 mcg total) by mouth in the morning. 04/22/2022 Active 24 hr propranolol hydrochloride 60 mg extended release oral capsule (5 sources) beta-Adrenergic Constance Start: 04-25-2024 take 1 capsule by mouth every twenty-four hours Propranolol 60 mg capsule,extended release 24 hr Active MG PO April 24, 2024 11:00pm Start: 06-01-2022 take 1 capsule by mo [facility] once daily propranolol LA (INDERAL LA) 60 mg 24 hr capsule Take by mouth daily. 06/01/2022 Active SUMAtriptan 100 mg oral tablet (6 sources) Serotonin-1b and Serotonin-1d Receptor Agonist Start: 06-19-2022 Sumatriptan Succinat e 100 mg tablet Active MG PO April 24, 2024 11:00pm take 1 tablet by mouth once DIONISIO triptan (Imitrex) 100 MG tablet Take 100 mg by mouth 1 (one) time if needed Active Imitrex 6 MG/0.5 ML 0.5 ml may repeat dose after 1 hour as needed Injection Once a day Active Completed/Discontinued Medications Medication Drug Class(es) Dates Sig (Normalized) Sig (Original) Toradol 30 mg/ml (1 source) Start: 06-10-2022 Toradol 30 mg/ml May, 30 mg Problems Active Problems Problem Classification Problem Date Documented Da te Episodic/Chronic Headache; including migraine (9 sources) Migraine, unspecified, not intractable, without status migrainosus; Translations: [Migraine] Onset: 12-24-2022 08-23-2024 Chronic Headache; including migraine (2 sources) Medication overuse headache; Translations: [Drug-induced headache, not elsewhere classified, not intractable] 04-10-2025 Episodic Nausea and vomiting (3 sources) Nausea; Translations: [Nausea and vomiting] Onset: 06-10-2022 Resolved: 06-10-2022 Episodic Other nutritional; endocrine; and metabolic disorders (2 [...] (2 sources) Mood disorders Onset: 08-23-2024 08-23-2024 Nonmalignant breast conditions (2 sources) Heterogeneously dense [...] Range 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-31-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 MAMM SCREENING BILATERAL W CAD MAMM SCREENING BILATERAL W CAD VINCENZO BAGLEY 1985 [id number] EXAM: MAMM SCREENING BILATERAL W CAD, 08/31/2024 [...] AM 1 c MAMM 1 YR Normal [facility] Cytologyon 08-23-2024 Cytology Normal [facility] Comment on above: Result Comment: [facility] [employer] [facility] Laboratory Medicine [address] [place] [address] Gynecologic Cytology Consultation Patient Name:SANDRA BAGLEY:1985 (Age: 38)Gender:FTaken:4Reported:09/15/2024hysician(s):Radha aLmb, [facility] ([phone])Copy To: Rec. #:[id number]: #[id number] Final Cytologic Interpretation ThinPrep Pap Test (Cervical): Satisfactory for evaluation. A transformazion zone component is not identified via imaging-assisted review, using [employer] Thin Prep Imaging System, within 22 microscopic murray of view. NEGATIVE FOR INTRAEPITHELIAL LESION OR MALIGNANCY. [facility] [place]/15/2024 Interpret[place] [address], License number: [id number]. 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 The Pap test is primarily effective for the diagnosis and prevention of squamous cell carcinoma. Regular screening is critical for prevention. ThinPrep liquid-based slides, which meet the Medical Center Representative criteria for automated screening, have been screened by the ThinPrep Imaging System (as of 08/15/07) along with an additional manual rescreening by a break out man and, if indicated, by a pathologist. HIGH RISK HPV W/GENOon 08-23 HPV 31+33+35+39+45+51+52 +56+58+59+66+68 DNA LUIGI+probe Ql (Cvx) HPV SPECIMEN TYPE ThinPrep HPV 16 Negative (qualifier value) HPV 18 Negative (qualifier value) OTHER HIGH RISK HPV Negative (qualifier value) HPV types 31,33,35,39,45,52,56, 58,59,66 and 68 DNA were undetectable. Normal [facility] Comment on above: Performed By: #### 7 1431-1 #### [facility] ([id number]) [address] [place] [address] [place] [address] [facility] ([id number]) [address] [place] [address] CBC AND AUTO DIFFon 06-30-20 ABSOLUTE BASOPHIL 0.0 X10E9/L Normal 0.0-0.2 [facility] Comment on above: Performed By: #### C BCA, HA1C, CMP, 44126-7, THYR, 3051-0 #### [facility] ([id number]) [address], [address] [place] [address] ABSOLUTE NEUTROPHIL 2.1 X10E9/L Normal 1.5-6.6 [facility] Comment on above: Performed By: #### C BCA, HA1C, CMP, 45681-2, THYR, 3051-0 #### [facility] ([id number]) [address], [address] [place] [address] Basophils/100 WBC (Bld) 1.0 % Normal [facility] Comment on above: Performed By: #### C BCA, HA1C, CMP, 27747-7, THYR, 3051-0 #### [facility] ([id number]) [address], [address] [place] [address] Eosinophils (Bld) [#/Vol] 0.0 10*3/uL Normal 0.0-0.4 [facility] Comment on above: Performed By: #### C BCA, HA1C, CMP, 96322-9, THYR, 305-0 #### [facility] ([id number]) [address], [address] [place] [address] Eosinophils/100 WBC (Bld) 1.2 % Normal [facility] Comment on above: Performed By: #### C BCA, HA1C, CMP, 92051-3, THYR, 305-0 #### [facility] ([id number]) [address], [address] [place] [address] Erythrocyte distribution width (RBC) [Ratio] 13.9 % Normal 11.5-15.0 [facility] Comment on above: Performed By: #### C BCA, HA1C, CMP, 58082-5, THYR, 3051-0 #### [facility] ([id number]) [address], [address] [place] [address] Hematocrit (Bld) [Volume fraction] 39.7 % Normal 35-47 [facility] Comment on above: Performed By: #### C BCA, HA1C, CMP, 56729-3, THYR, 3051-0 #### [facility] ([id number]) [address], [address] [place] [address] Hemoglobin (Bld) [Mass/Vol] 13.1 g/dL Normal 11.7-15.5 [facility] Comment on above: Performed By: #### C BCA, HA1C, CMP, 92070-2, THYR, 3051-0 #### [facility] ([id number]) [address] [address] [place] [address] Lymphocytes (Bld) [#/Vol] 1.6 10*3/uL Normal 1.0-3.5 [facility] Comment on above: Performed By: #### C BCA, HA1C, CMP, 32761-9, THYR, 3051-0 #### [facility] ([id number]) [address] [address] [place] [address] Lymphocytes/100 WBC (Bld) 38.7 % Normal [facility] Comment on above: Performed By: #### C BCA, HA1C, CMP, 25887-5, THYR, 305-0 #### [facility] ([id number]) [address], [address] [place] [address] MCH (RBC) [Entitic mass] 30.0 pg Normal 27-34 [facility] Comment on above: Performed By: #### C BCA, HA1C, CMP, 19108-2, THYR, 3051-0 #### [facility] ([id number]) [address] [address] [address] [place] [address] MCHC (RBC) [Mass/Vol] 32.9 g/dL Normal 32-36 [facility] Comment on above: Performed By: #### C BCA, HA1C, CMP, 65746-1, THYR, 3051-0 #### [facility] ([id number]) [address] [address] [address] [place] [address] MCV (RBC) [Entitic vol] 91 fL Normal 80-100 [facility] Comment on above: Performed By: #### C BCA, HA1C, CMP, 81028-8, THYR, 3051-0 #### [facility] ([id number]) [address] [place] [address] Monocytes (Bld) [#/Vol] 0.4 10*3/uL Normal 0-0.9 [facility] Comment on above: Performed By: #### C BCA, HA1C, CMP, 55921-3, THYR, 3051-0 #### [facility] ([id number]) [address], [facility] [address] [place] [address] Monocytes/100 WBC (Bld) 8.5 % Normal [facility] Comment on above: Performed By: #### C BCA, HA1C, CMP, 11761-2, THYR, 3051-0 #### [facility] ([id number]) [address] [address] [address] [place] [address] Neutrophils/100 WBC (Bld) 50.6 % Normal [facility] Comment on above: Performed By: #### C BCA, HA1C, CMP, 85244-2, THYR, 3051-0 #### [facility] ([id number]) [address] [address] [address] [place] [address] Platelet mean volume (Bld) [Entitic vol] 10.1 fL Normal 7-12 [facility] Comment on above: Performed By: #### C BCA, HA1C, CMP, 78419-3, THYR, 3051-0 #### [facility] ([id number]) [address] [address] [place] [address] Platelets (Bld) [#/Vol] 227 10*3/uL Normal 150-450 [facility] Comment on above: Performed By: #### C BCA, HA1C, CMP, 21604-0, THYR, 3051-0 #### [facility] ([id number]) [address] [address] [place] [address] RBC COUNT 4.36 X10E12/L Normal 3.80-5.20 [facility] Comment on above: Performed By: #### C BCA, HA1C, CMP, 47965-6, THYR, 3051-0 #### [facility] ([id number]) [address], [address] [place] [address] WBC (Bld) [#/Vol] 4.2 10*3/uL Normal 4.0-11.0 [facility] Comment on above: Performed By: #### C BCA, HA1C, CMP, 38626-0, THYR, 3051-0 #### [facility] ([id number]) [address], [address] [place] [address] COMPREHENSIVE METABOLIC PANE Andres 06-30-2024 Albumin [Mass/Vol] 4.2 g/dL Normal 3.2-5.3 [facility] Comment on above: Performed By: #### C BCA, HA1C, CMP, 62998-4, THYR, 3051-0 #### [facility] ([id number]) [address], [address] [place] [address] ALP [Catalytic activity/Vol] 66 U/L Normal 39-130 [facility] Comment on above: Performed By: #### C BCA, HA1C, CMP, 87310-5, THYR, 3051-0 #### [facility] ([id number]) [address], [address] [place] [address] ALT [Catalytic activity/Vol] 27 U/L Normal 0-31 [facility] Comment on above: Performed By: #### C BCA, HA1C, CMP, 33964-2, THYR, 3051-0 #### [facility] ([id number]) [address], [address] [place] [address] Anion gap [Moles/Vol] 11 mmol/L Normal 5-15 [facility] Comment on above: Performed By: #### C BCA, HA1C, CMP, 45595-3, THYR, 3051-0 #### [facility] ([id number]) [address], [address] [place] [address] AST [Catalytic activity/Vol] 23 U/L Normal 0-41 [facility] Comment on above: Performed By: #### C BCA, HA1C, CMP, 78359-9, THYR, 3051-0 #### [facility] ([id number]) [address], [address] [place] [address] Bilirubin [Mass/Vol] 0.5 mg/dL Normal 0.3-1.2 [facility] Comment on above: Performed By: #### C BCA, HA1C, CMP, 47071-6, THYR, 3051-0 #### [facility] ([id number]) [address], [address] [place] [address] Calcium [Mass/Vol] 9.3 mg/dL Normal 8.5-10.5 [facility] Comment on above: Performed By: #### C BCA, HA1C, CMP, 60908-8, THYR, 3051-0 #### [facility] ([id number]) [address], [address] [place] [address] Chloride [Moles/Vol] 101 mmol/L Normal 98-109 [facility] Comment on above: Performed By: #### C BCA, HA1C, CMP, 10997-4, THYR, 3051-0 #### [facility] ([id number]) [address], [address] [place] [address] CO2 [Moles/Vol] 26 mmol/L Normal 22-32 [facility] Comment on above: Performed By: #### C BCA, HA1C, CMP, 80424-4, THYR, 3051-0 #### [facility] ([id number]) [address], [address] [place] [address] Creatinine [Mass/Vol] 0.72 mg/dL Normal 0.40-1.00 [facility] Comment on above: Result Comment: METH OD TRACEABLE TO IDMS STANDARD Performed By: #### C BCA, HA1C, CMP, 66982-2, THYR, 3051-0 #### [facility] ([id number]) [address], [address] [place] [address] eGFR (CKD-EPI) NON-RACE DEPENDENT >90 Normal >59 [facility] Comment on above: Result Comment: Reported eGFR is based on the CKD-EPI 2020 equation that does not use a race coefficient. Performed By: #### C BCA, HA1C, CMP, 79246-3, THYR, 3051-0 #### [facility] ([id number]) [address], [address] [place] [address] Glucose [Mass/Vol] 91 mg/dL Normal 65-99 [facility] Comment on above: Performed By: #### C BCA, HA1C, CMP, 96222-8, THYR, 3051-0 #### [facility] ([id number]) [address], [address] [place] [address] Potassium [Moles/Vol] 4.0 mmol/L Normal 3.5-5.0 [facility] Comment on above: Performed By: #### C BCA, HA1C, CMP, 87303-1, THYR, 3051-0 #### [facility] ([id number]) [address], [address] [place] [address] Protein [Mass/Vol] 7.1 g/dL Normal 6.0-8.0 [facility] Comment on above: Performed By: #### C BCA, HA1C, CMP, 81216-2, THYR, 3051-0 #### [facility] ([id number]) [address], [address] [place] [address] Sodium [Moles/Vol] 138 mmol/L Normal 134-146 [facility] Comment on above: Performed By: #### C BCA, HA1C, CMP, 17678-8, THYR, 3051-0 #### [facility] ([id number]) [address] [place] [address] Urea nitrogen [Mass/Vol] 12 mg/dL Normal 5-23 [facility] Comment on above: Performed By: #### C BCA, HA1C, CMP, 08855-6, THYR, 3051-0 #### [facility] ([id number]) [address], [address] [place] [address] FREE T3on 06-30-2024 Free T3 [Mass/Vol] 3.31 pg/mL Normal 2.50-3.90 [facility] Comment on above: Performed By: #### C BCA, HA1C, CMP, 80539-6, THYR, 305-0 #### [facility] ([id number]) [address], [address] [place] [address] HGB A1C (GLYCO-HGB)on 2023 Glucose [Mass/Vol] 97 mg/dL Normal [facility] Comment on above: Performed By: #### C BCA, HA1C, CMP, 96834-8, THYR, 305-0 #### [facility] ([id number]) [address], [address] [place] [address] HbA1c (Bld) [Mass fraction] 5.0 % Normal 4.4-5.6 [facility] Comment on above: Result Comment: NOTE ADA Guidelines Result HgbA1c Normal : less than 5.7 % Prediabetes : 5.7 % to 6.4 % Diabetes : > 6.4 % Use with caution in patients with abnormal hemoglobin variants as the half-life of red blood cells and in vivo glycation rates are affected. Performed By: #### C BCA, HA1C, CMP, 48298-9, THYR, 3051-0 #### [facility] ([id number]) [address], [address] [place] [address] Lipid 1996 panelon 4 Cholesterol [Mass/Vol] 173 mg/dL Normal 150-200 [facility] Comment on above: Performed By: #### C BCA, HA1C, CMP, 43972-8, THYR, 3051-0 #### [facility] ([id number]) [address], [address] [place] [address] Cholesterol in HDL [Mass/Vol] 73 mg/dL Normal >39 [facility] Comment on above: Result Comment: HDL <40 mg/dL - High Risk HDL > or = 40mg/dL- Desirable HDL >60 mg/dL - Negative Risk Performed By: #### C BCA, HA1C, CMP, 19079-1, THYR, 3051-0 #### [facility] ([id number]) [address], [facility] [address] [place] [address] Cholesterol in LDL [Mass/Vol] 89 mg/dL Normal <130 [facility] Comment on above: Result Comment: LDL <100 mg/dL - Desirable LDL >160 mg/dL - High Risk Performed By: #### C BCA, HA1C, CMP, 42574-9, THYR, 3051-0 #### [facility] ([id number]) [address], [address] [place] [address] Cholesterol in VLDL [Mass/Vol] 11 mg/dL Normal 0-30 [facility] Comment on above: Performed By: #### C BCA, HA1C, CMP, 50128-8, THYR, 3051-0 #### [facility] ([id number]) [address], [address] [place] [address] CHOLESTEROL:HDL 2.4 Normal 1.0-5.0 [facility] Comment on above: Performed By: #### C BCA, HA1C, CMP, 82726-3, THYR, 3051-0 #### [facility] ([id number]) [address], [facility] [address] [place] [address] Triglyceride [Mass/Vol] 56 mg/dL Normal 27-150 [facility] Comment on above: Performed By: #### C BCA, HA1C, CMP, 33623-6, THYR, 3051-0 #### [facility] ([id number]) [address] [address] THYROID PROFILEon 06-30-2024 Free T4 [Mass/Vol] 0.75 ng/dL Normal 0.61-1.60 [facility] Comment on above: Performed By: #### C BCA, HA1C, CMP, 60881-4, THYR, 3051-0 #### [facility] ([id number]) [address] [facility] [address] [place] [address] TSH 2.51 uIU/mL Normal 0.49-4.67 [facility] Comment on above: Performed By: #### C BCA, HA1C, CMP, 61576-8, THYR, 3051-0 #### [facility] ([id number]) [address], [address] [address] Lab - Toxicology Resultson 0 06-21-2023 Lab - Toxicology Results [id number]. 00OTGTIFF Normal [facility] QuantiFERON-TB Gold Pluson 0 06-19-2023 QuantiFERON Incubation Incubation performed. Invalid Interpretation Code [facility] Comment on above: Result Comment: Perf ormed At: [facility] [address] [id number] Joelle Villa PhD Ph:[phone] Performed By: #### 1 [id number], [id number], [id number] #### [facility] (DEFAULT) [address] [place] [address] QuantiFERON-TB Gold Plus Negative Invalid Interpretation Code Negative [facility] Comment on above: Result Comment: No r esponse to M tuberculosis antigens detected. Infection with M tuberculosis is unlikely, but high risk individuals should be considered for additional testing (ATS/IDSA/CDC Clinical Practice Guidelines, 2017). The reference range is an Antigen minus Nil result of <0.35 IU/mL. Chemiluminescence immunoassay methodology Performed At: [address] [id number] Joelle Villa PhD Ph:[phone] Performed By: #### 1 [id number], [id number], [id number] #### [facility] (DEFAULT) [address] [place] [address] HBSab Qnt LCon 06-18-2023 Hep B Surf Ab Quant LC >1000.0 Invalid Interpretation Code Immunity>9.9 [facility] Comment on above: Result Comment: Stat us of Immunity Anti-HBs Level Inconsistent with Immunity 0.0 - 9.9 Consistent with Immunity >9.9 Performed At: [address] [id number] Joelle Villa PhD Ph:[phone] Performed By: #### 1 [id number], [id number], [id number] #### [facility] (DEFAULT) [address] [place], [place] [address] Measles/Mumps/Rubella Immuni ty LCon 06-18-2023 Mumps Abs, IgG LC 41.8 AU/mL Invalid Interpretation Code Immune >10.9 [facility] Comment on above: Result Comment: Nega tive <9.0 Equivocal 9.0 - 10.9 Positive >10.9 A positive result generally indicates past exposure to Mumps virus or previous vaccination. Performed At: [address] [id number] Joelle Villa PhD Ph:[phone] Performed By: #### 1 [id number], [id number], [id number] #### [facility] (DEFAULT) [address] [place] [address] Rubella Antibodies, IgG LC 2.76 index Invalid Interpretation Code Immune >0.99 [facility] Comment on above: Result Comment: Non- immune <0.90 Equivocal 0.90 - 0.99 Immune >0.99 Performed By: #### 1 [id number], [id number], [id number] #### [facility] (DEFAULT) [address] [place] [address] Rubeola Ab, IgG, EIA LC 147.0 AU/mL Invalid Interpretation Code Immune >16.4 [facility] Comment on above: Result Comment: Nega tive <13.5 Equivocal 13.5 - 16.4 Positive >16.4 Presence of antibodies to Rubeola is presumptive evidence of immunity except when acute infection is suspected. Performed By: #### 1 [id number], [id number], [id number] #### [facility] (DEFAULT) [address] [place] [address] Nicotine Metabolite, Urine L Con 06-18-2023 Cotinine LC Negative Invalid Interpretation Code [id number] [facility] Comment on above: Result Comment: Perf ormed At: [facility] RTP [address] [facility] [place] [id number] Alexandria Eagle PhD Ph:[phone] Performed By: #### 1 [id number] #### [facility] (DEFAULT) [address] [place] [address] CBC AUTO DIFFon 04-12-2023 BASO # 0.0 103/ul Normal 0.0-0.1 [facility] Comment on above: Performed By: #### C BC #### [facility] [address] [place] [address] Dr. Meseret Zelaya Basophils/100 WBC (Bld) 0.5 % Normal 0.2-2.0 [facility] Comment on above: Performed By: #### C BC #### [facility] [address] [place] [address] Dr. Meseret Zelaya EO # 0.1 103/ul Normal 0.0-0.7 [facility] Comment on above: Performed By: #### C BC #### [facility] [address] [place] [address] Dr. Meseret Zelaya Eosinophils/100 WBC (Bld) 1.5 % Normal 0.9-7.0 [facility] Comment on above: Performed By: #### C BC #### [facility] [address] [place] [address] Dr. Meseret Zelaya Erythrocyte distribution width (RBC) [Ratio] 12.6 % Normal 11.0-15.0 [facility] Comment on above: Performed By: #### C BC #### [facility] [address] [place] [address] Dr. Meseret Zelaya Hematocrit (Bld) [Volume fraction] 36.2 % Normal 36.0-48.0 [facility] [place] [facility] Comment on above: Performed By: #### C BC #### [facility] [address] [place] [address] Dr. Meseret Zelaya Hemoglobin (Bld) [Mass/Vol] 12.1 g/dL Normal 12.0-16.0 [facility] [place] [facility] Comment on above: Performed By: #### C BC #### [facility] [address] [place] [address] Dr. Meseret Zelaya IG # 0.01 10e3/ul Normal 0.00-0.03 [facility] [place] [facility] Comment on above: Performed By: #### C BC #### [facility] [address] [place] [address] Dr. Meseret Zelaya IG % 0.2 % Normal 0.0-0.5 [facility] Comment on above: Performed By: #### C BC #### [facility] [address] [place] [address] Dr. Meseret Zelaya LYMPH # 1.9 103/ul Normal 1.2-3.8 [facility] Comment on above: Performed By: #### C BC #### [facility] [address] [place] [address] Dr. Meseret Zelaya Lymphocytes/100 WBC (Bld) 31.7 % Normal 20.5-60.0 [facility] [place] [facility] Comment on above: Performed By: #### C BC #### [facility] [address] [place] [address] Dr. Meseret Zelaya MANUAL DIFF REQ NO Normal [facility] Comment on above: Performed By: #### C BC #### [facility] [address] [place] [address] Dr. Meseret Zelaya MCH (RBC) [Entitic mass] 30.3 pg Normal 26.7-34.0 [facility] [place] [facility] Comment on above: Performed By: #### C BC #### [facility] [address] [place] [address] Dr. Meseret Zelaya MCHC (RBC) [Mass/Vol] 33.4 g/dL Normal 29.9-35.2 [facility] [place] [facility] Comment on above: Performed By: #### C BC #### [facility] [address] [place] [address] Dr. Meseret Zelaya MCV (RBC) [Entitic vol] 90.5 fL Normal 81.0-99.0 [facility] [place] [facility] Comment on above: Performed By: #### C BC #### [facility] [address] [place] [address] Dr. Meseret Zelaya MONO # 0.3 103/ul Normal 0.3-0.8 [facility] [place] [facility] Comment on above: Performed By: #### C BC #### [facility] [address] [place] [address] Dr. Meseret Zelaya Monocytes/100 WBC (Bld) 5.6 % Normal 1.7-12.0 [facility] [place] [facility] Comment on above: Performed By: #### C BC #### [facility] [address] [place] [address] Dr. Meseret Zelaya NEUT # 3.6 103/ul Normal 1.4-6.5 [facility] [place] [facility] Comment on above: Performed By: #### C BC #### [facility] [address] [place] [address] Dr. Meseret Zelaya Neutrophils/100 WBC (Bld) 60.5 % Normal 43.0-75.0 [facility] Comment on above: Performed By: #### C BC #### [facility] [address] [address] [address] Meseret Zelaya Platelet mean volume (Bld) [Entitic vol] 9.9 fL Normal 9.5-13.5 [facility] Comment on above: Performed By: #### C BC #### [facility] [address] [address] [address] Meseret Zelaya PLT 276 103/ul Normal 150-450 [facility] Comment on above: Performed By: #### C BC #### [facility] [address] [address] [address] Meseret Zelaya RBC 4.00 106/ul Critically low 4.20-5.40 [facility] Comment on above: Performed By: #### C BC #### [facility] [address] [place] [address] Dr. Meseret Zelaya WBC 5.9 103/ul Normal 4.0-11.0 [facility] Comment on above: Performed By: #### C BC #### [facility] [address] [place] [address] Dr. Meseret Zelaya FREE T3on 04-12-2023 FREE T3 3.21 pg/mlL Normal 2.18-3.98 [facility] Comment on above: Performed By: #### L IPID, CMP, TSH, FT3, T4 #### [facility] [address] [place] [address] Dr. Meseret Zelaya GLYCOHEMOGLOBIN A1Con 2022 ADA RECOMMENDATION SEE BELOW Normal [facility] Comment on above: Result Comment: ADA RECOMMENDED LIMIT 4.0 - 6.0 ADA THERAPEUTIC TARGET < 7.0 ACTION SUGGESTED > 7.0 Performed By: #### A 1C #### [facility] [address] [place] [address] Dr. Meseret Zelaya Glucose [Mass/Vol] 97 mg/dL Normal [facility] Comment on above: Performed By: #### A 1C #### [facility] [address] [place] [address] Dr. Meseret Zelaya HbA1c (Bld) [Mass fraction] 5.0 % Normal 4.5-6.2 [facility] Comment on above: Performed By: #### A 1C #### [facility] [address] [place] [address] Dr. Meseret Zelaya LIPID PROFILEon 04-12-2023 CHOL-HDL RATIO NORM SEE BELOW Normal [facility] Comment on above: Result Comment: 3.3 - 4.4 LOW RISK 4.4 - 7.1 AVERAGE RISK 7.1 - 11.0 MODERATE RISK >11.0 HIGH RISK Performed By: #### L IPID, CMP, TSH, FT3, T4 #### [facility] [address] [place] [address] Dr. Meseret Zelaya Cholesterol [Mass/Vol] 192 mg/dL Normal <=200 [facility] [place] [facility] Comment on above: Performed By: #### L IPID, CMP, TSH, FT3, T4 #### [facility] [address] [place] [address] Dr. Meseret Zelaya Cholesterol in HDL [Mass/Vol] 75 mg/dL Critically high 40-60 [facility] [place] [facility] Comment on above: Performed By: #### L IPID, CMP, TSH, FT3, T4 #### [facility] [address] [place] [address] Dr. Meseret Zelaya Cholesterol in LDL [Mass/Vol] 97.4 mg/dL Normal [facility] Comment on above: Performed By: #### L IPID, CMP, TSH, FT3, T4 #### [facility] [address] [place] [address] Dr. Meseret Zelaya Cholesterol.total/Ch olesterol in HDL [Mass ratio] 2.6 {ratio} Normal [facility] Comment on above: Performed By: #### L IPID, CMP, TSH, FT3, T4 #### [facility] [address] [place] [address] Dr. Meseret Zelaya HDL NORMAL > or = 60 mg/dl - LO W CARDIOVASCULAR RISK <40 mg/dl - HIGH CARDIOVASCULAR RISK Normal [facility] Comment on above: Performed By: #### L IPID, CMP, TSH, FT3, T4 #### [facility] [address] [address] [address] Meseret Zelaya LDL CALC NORMAL SEE BELOW Normal [facility] Comment on above: Result Comment: <100 mg/dl OPTIMAL 100 - 129 mg/dl NEAR OR ABOVE OPTIMAL 130 - 159 mg/dl BORDERLINE HIGH 160 - 189 mg/dl HIGH >190 mg/dl VERY HIGH Performed By: #### L IPID, CMP, TSH, FT3, T4 #### [facility] [address] [address] [address] Meseret Zelaya Triglyceride [Mass/Vol] 98 mg/dL Normal <=150 [facility] Comment on above: Performed By: #### L IPID, CMP, TSH, FT3, T4 #### [facility] [address] [place] [address] Dr. Meseret Zelaya VLDL CALC 19.6 mg/dL Normal [facility] Comment on above: Performed By: #### L IPID, CMP, TSH, FT3, T4 #### [facility] [address] [place] [address] Dr. Meseret Zelaya PROF 14(COMP METB)on 023 Albumin [Mass/Vol] 3.5 g/dL Normal 3.4-5.0 [facility] Comment on above: Performed By: #### L IPID, CMP, TSH, FT3, T4 #### [facility] [address] [address] [address] Meseret Zelaya Albumin/Globulin [Mass ratio] 1.0 {ratio} Normal [facility] Comment on above: Performed By: #### L IPID, CMP, TSH, FT3, T4 #### [facility] [address] [address] [address] Meseret Zelaya ALP [Catalytic activity/Vol] 72 U/L Normal 46-116 [facility] [place] [facility] Comment on above: Performed By: #### L IPID, CMP, TSH, FT3, T4 #### [facility] [address] [address] [address] Meseret Zelaya ALT [Catalytic activity/Vol] 35 U/L Normal 14-59 [facility] [place] [facility] Comment on above: Performed By: #### L IPID, CMP, TSH, FT3, T4 #### [facility] [address] [place] [address] Dr. Meseret Zelaya Anion gap [Moles/Vol] 12.0 mmol/L Normal [facility] Comment on above: Performed By: #### L IPID, CMP, TSH, FT3, T4 #### [facility] [address] [place] [address] Dr. Meseret Zelaya AST [Catalytic activity/Vol] 22 U/L Normal 15-37 [facility] Comment on above: Performed By: #### L IPID, CMP, TSH, FT3, T4 #### [facility] [address] [place] [address] Dr. Meseret Zelaya Bilirubin [Mass/Vol] 0.4 mg/dL Normal 0.2-1.0 [facility] [place] [facility] Comment on above: Performed By: #### L IPID, CMP, TSH, FT3, T4 #### [facility] [address] [place] [address] Dr. Meseret Zelaya Calcium [Mass/Vol] 8.9 mg/dL Normal 8.5-10.1 [facility] Comment on above: Performed By: #### L IPID, CMP, TSH, FT3, T4 #### [facility] [address] [place] [address] Dr. Meseret Zelaya Chloride [Moles/Vol] 104 mmol/L Normal 98-107 [facility] Comment on above: Performed By: #### L IPID, CMP, TSH, FT3, T4 #### [facility] [address] [place] [address] Dr. Meseret Zelaya CO2 [Moles/Vol] 28.9 mmol/L Normal 21.0-32.0 [facility] Comment on above: Performed By: #### L IPID, CMP, TSH, FT3, T4 #### [facility] [address] [place] [address] Dr. Meseret Zelaya Creatinine [Mass/Vol] 0.76 mg/dL Normal 0.55-1.02 [facility] Comment on above: Performed By: #### L IPID, CMP, TSH, FT3, T4 #### [facility] [address] [place] [address] Dr. Meseret Zelaya EGFR-AF INDIAN >60 Normal >=60 [facility] Comment on above: Performed By: #### L IPID, CMP, TSH, FT3, T4 #### [facility] [address] [place] [address] Dr. Meseret Zelaya EGFR-NON AF INDIAN >60 Normal >=60 [facility] [place] [facility] Comment on above: Performed By: #### L IPID, CMP, TSH, FT3, T4 #### [facility] [address] [place] [address] Dr. Meseret Zelaya Globulin (S) [Mass/Vol] 3.6 g/dL Normal [facility] [place] [facility] Comment on above: Performed By: #### L IPID, CMP, TSH, FT3, T4 #### [facility] [address] [place] [address] Dr. Meseret Zelaya Glucose [Mass/Vol] 89 mg/dL Normal 74-106 [facility] Comment on above: Performed By: #### L IPID, CMP, TSH, FT3, T4 #### [facility] [address] [place] [address] Dr. Meseret Zelaya Potassium [Moles/Vol] 3.9 mmol/L Normal 3.5-5.1 [facility] Comment on above: Performed By: #### L IPID, CMP, TSH, FT3, T4 #### [facility] [address] [place] [address] Dr. Meseret Zelaya Protein [Mass/Vol] 7.1 g/dL Normal 6.4-8.2 [facility] Comment on above: Performed By: #### L IPID, CMP, TSH, FT3, T4 #### [facility] [address] [place] [address] Dr. Meseret Zelaya Sodium [Moles/Vol] 141 mmol/L Normal 136-145 [facility] Comment on above: Performed By: #### L IPID, CMP, TSH, FT3, T4 #### [facility] [address] [place] [address] Dr. Meseret Zelaya Urea nitrogen [Mass/Vol] 9.0 mg/dL Normal 7.0-18.0 [facility] [place] [facility] Comment on above: Performed By: #### L IPID, CMP, TSH, FT3, T4 #### [facility] [address] [place] [address] Dr. Meseret Zelaya Urea nitrogen/Creatinine [Mass ratio] 11.8 mg/mg Normal [facility] Comment on above: Performed By: #### L IPID, CMP, TSH, FT3, T4 #### [facility] [address] [place] [address] Dr. Meseret Zelaya T4on 04-12-2023 T4 [Mass/Vol] 11.00 ug/dL Normal 4.80-13.90 [facility] Comment on above: Performed By: #### L IPID, CMP, TSH, FT3, T4 #### [facility] [address] [place] [address] Dr. Meseret Zelaya TSHon 04-12-2023 TSH 0.723 uIU/mL Normal 0.358-3.740 [facility] Comment on above: Performed By: #### L IPID, CMP, TSH, FT3, T4 #### [facility] [address] [place] [address] Dr. Meseret Zelaya VITAMIN D 25 OHon 04-12-2023 VIT D 25-OH 28.6 ng/mL Normal [facility] Comment on above: Performed By: #### V ITAD #### [facility] [address] [place] [address] Dr. Meseret Zelaya VIT D RANGES SEE BELOW Normal [facility] Comment on above: Result Comment: <20 ng/mL Vit D deficient 20 - <30 ng/mL Vit D insufficient 30 - 100 ng/mL Vit D sufficient >100 ng/mL Potential Toxicity Performed By: #### V ITAD #### [facility] [address] [place] [address] Dr. Meseret Zelaya SURGICAL PATH REPORTon 12-14 SURGICAL PATH REPORT [facility] Department of Pathology [address] [place] [id number] Name: VINCENZO BAGLEY : 1985 [facility] [id number] Number: Gender: Female Location: [facility] Admit 34 years Attending SHERWIN GAN Age: Provider: Ordering SHERWIN GAN Provider: Consulting: Surgical Pathology Report ACCESSION: COLLECTED DATE/TIME: RECEIVED DATE/TIME: PATHOLOGIST: [id number] 12/12/2019 16:30 EST 12/13/2019 12:53 EST ROBBIE PUGA MD Final Diagnosis Report for [facility], [place] [employer], CHOLECYSTECTOMY: - CHRONIC CHOLECYSTITIS AND CHOLELITHIASIS. ROBBIE PGUA PATHOLOGIST (Electronic Signature) Date Verified 12/14/2019 MARILYN Clinical Data PRE-OP DIAGNOSIS: Not specified POST-OP [...] The wall measures 0.4 cm in thickness. [employer] Sk[employer] sections are submitted in one cassette. MP:marilyn 12/13/2019 Print Date/ 12/14/2019 13:24 EST Number: Time: [facility] Department of Pathology [address] [place], [place] [id number] Name: VINCENZO BAGLEY : 1985 [facility] [id number] Number: Gender: Female Location: [facility] Admit 34 years Attending SHERWIN GAN Age: Provider: Ordering SHERWIN GAN Provider: Consulting: Surgical Pathology Report ACCESSION: COLLECTED DATE/TIME: RECEIVED DATE/TIME: PATHOLOGIST: [id number] 12/12/2019 16:30 EST 12/13/2019 12:53 EST ROBBIE PUGA MD Gross Description Tissue pathology report for: [facility], [address] [place] [address]; PATHOLOGY SERVICES PROVIDED BY [facility] [place], [facility] (CLIA #[id number]) in cooperation with [facility] at [address] [place] [address] (CLIA #[id number]) Codes CPT CODE: 62310 Print Date/ 12/14/2019 13:24 EST Number: Time: Normal [facility] Comment on above: Performed By: #### [id number] #### [facility] Services [address] [place] [address] [employer]: Nathan De La Cruz MD Vital Signs Date Time Vital Sign Value Performing Clinician Facility 04-10-2025 [id number] Body height 165.1 cm Karol Olivo DO Work Phone: [facility] [id number] Body mass index (BMI) [Ratio] 25.73 kg/m2 Karol Olivo DO Work Phone: [facility] 04-10-2025 17:08-0400 Body weight 70.13 kg Karol Pallavi DO Work Phone: [facility] 04-10-2025 17:08-0400 Diastolic blood pressure 78 mm[Hg] Karol Pallavi DO Work Phone: [facility] 04-10-2025 17:08-0400 Heart rate 78 /min Karol Pallavi DO Work Phone: [facility] 04-10-2025 17:08-0400 SaO2% (BldA) [Mass fraction] 100 % Karol Pallavi DO Work Phone: [facility] 04-10-2025 17:08-0400 Systolic blood pressure 108 mm[Hg] Karol Pallavi DO Work Phone: [facility] 01-16-2025 14:31-0500 Body height 165.1 cm [facility] 01-16-2025 14:31-0500 Body mass index (BMI) [Ratio] 28.5 kg/m2 [facility] 01-16-2025 14:31-0500 Body temperature 98.5 [degF] [facility] 01-16-2025 14:31-0500 Body weight 77.79 kg [facility] 01-16-2025 14:31-0500 Diastolic blood pressure 80 mm[Hg] [facility] 01-16-2025 14:31-0500 Heart rate 73 /min [facility] 01-16-2025 14:31-0500 Respiratory rate 17 /min [facility] 01-16-2025 14:31-0500 SaO2% (BldA) [Mass fraction] 93 % [facility] 01-16-2025 14:31-0500 Systolic blood pressure 121 mm[Hg] [facility] 08-23-2024 13:18-0400 Body height 165.1 cm [facility] 08-23-2024 13:18-0400 Body mass index (BMI) [Ratio] 30.12 kg/m2 [facility] 08-23-2024 13:18-0400 Body weight 82.1 kg [facility] 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 08-23-2024 13:18-0400 Systolic blood pressure 118 mm[Hg] [facility] 06-10-2022 17:35-0400 Body height 167.64 cm Hali Myles Other [employer] Other 06-10-2022 17:35-0400 Body mass index (BMI) [Ratio] 25.01 kg/m2 Hali Shameka Other [facility] Other 06-10-2022 17:35-0400 Body temperature 97.8 [degF] Hali Shameka Other [facility] Other 06-10-2022 17:35-0400 Body weight 70.31 kg Hali Shameka Other [facility] Other 06-10-2022 17:35-0400 Diastolic blood pressure 88 mm[Hg] Hali Shameka Other [facility] Other 06-10-2022 17:35-0400 Respiratory rate 18 /min Hali Myles Other [facility] Other 06-10-2022 17:35-0400 SaO2% (BldA) [Mass fraction] 98 % Hali Myles Other [facility] Other 06-10-2022 17:35-0400 Systolic blood pressure 149 mm[Hg] Hali Shameka Other [employer] Other Encounters Encounter Date Encounter Type Care Provider Facility Start: 04-10-2025 End: 04-10-2025 ambulatory KAROL PALLAVI Not Available Start: 04-10-2025 End: 04-10-2025 Office outpatient new 45 minutes Karol Olivo DO Work Phone: [facility] Comment on above: Intractable chronic migraine without aura and without status migrainosus (CMS/HCC) (Primary Dx); Medication overuse headache; Nausea and vomiting, unspecified vomiting type Start: 04-10-2025 End: 04-10-2025 Bamboo flowsheet Karol Olivo DO Work Phone: [facility] Start: 04-10-2025 End: 04-10-2025 Bamboo flowsheet Karol Olivo DO Work Phone: [facility] Start: 01-16-2025 End: 01-16-2025 ambulatory [facility] Work Phone: Start: 01-16-2025 End: 01-16-2025 Patient encounter procedure [facility] Work Phone: Start: 08-31-2024 End: 08-31-2024 [facility] Comment on above: Heterogeneously dens e tissue of both breasts on mammography (Primary Dx) Start: 08-23-2024 End: 08-23-2024 Encounter for gynecological examination (general) (routine) without abnormal findings [facility] Start: 08-23-2024 End: 08-23-2024 Patient encounter procedure [facility] Start: 08-23-2024 End: 08-23-2024 Periodic preventive med est patient 40-64yrs [facility] 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 Operator [facility] Comment on above: Well woman exam with routine gynecological exam (Primary Dx); Encounter for screening mammogram for breast cancer; Cervical smear, as part of routine gynecological examination; Standardized adult depression screening tool completed Start: 08-23-2024 End: 08-23-2024 ambulatory RADHA ADONIS [facility] Start: 08-23-2024 Encounter for gynecological examination (general) (routine) without abnormal findings LIZETH NAVARRO [facility] Start: 06-30-2024 End: 06-30-2024 ambulatory LIZETH NAVARRO [facility] Start: 06-30-2024 Encounter for genera l adult medical examination without abnormal findings LIZETH NAVARRO [facility] Start: 06-17-2023 End: 06-18-2023 ambulatory None Provider Facility:[facility] Start: 04-12-2023 End: 04-13-[address] LIZETH NAVARRO . Facility:[facility] Start: 12-22-2022 End: 12-23-[address] LIZETH NAVARRO . Facility:[facility] Start: 06-10-2022 End: 06-10-2022 ambulatory Hali Myles Other [employer] Other Start: 06-10-2022 Office outpatient ne w 20 minutes Hali Myles [facility] Procedures Date Procedure Procedure Detail Performing Clinician Start: 08-31-2024 Mammography Karol terrazas DO Work Phone: Start: 08-23-2024 Adult depression scr eening assessment [facility] 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 Operator Start: 08-23-2024 Microscopic observat ion [Identifier] in Cervix by Cyto stain Radha Lamb ANIMAL RIDES MANAGER-PRODUCT DEVELOPMENT COORDINATOR Work Phone: Start: 06-30-2023 Microscopic observat ion [Identifier] in Cervix by Cyto stain [facility] 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 Operator Plan of Treatment Date Care Activity Detail Author Start: 08-23-2029 Screening for malign ant neoplasm of cervix [facility] Start: 08-23-2027 Screening for malign ant neoplasm of cervix Pap Smear [facility] Start: 06-30-2026 Screening for malign ant neoplasm of cervix Pap Smear [facility] Start: 08-31-2025 Screening for malign ant neoplasm of breast Mammogram [facility] Start: 08-23-2025 Adult BMI Follow Up Plan Adult BMI Follow Up Plan [facility] Start: 08-23-2025 Adult BMI Screening Adult BMI Screen ing [facility] Start: 08-23-2025 Depression Screening Depression Scre ening [facility] Start: 08-23-2025 Tobacco Screening Tobacco Screening [facility] Start: 07-30-2025 Influenza vaccination Influenz a Vaccine (Season Ended) [facility] Start: 04-10-2025 End: 04-10-2026 Injection of botulinum toxin Botulinum Injection - Head/Face/Jaw Procedures Routine Intractable chronic migraine without aura and without status migrainosus (CMS/HCC) Expected: 04/10/2025 (Approximate), Expires: 04/10/2026 [facility] [employer] Work Phone: Comment on above: Expected: 04/10/2025 (Approximate), Expires: 04/10/2026 Start: 08-31-2024 End: 08-31-2025 NM Guidance limited for localization of tumor NM Molecular breast imaging localization limited area Imaging Routine Heterogeneously Dense Tissue Of Both Breasts On Mammography Expected: 08/31/2024, Expires: 08/31/2025 [employer] Work Phone: Comment on above: Expected: 08/31/2024 , Expires: 08/31/2025 Start: 08-31-2024 End: 08-31-2024 Patient encounter procedure 08/31/2024 9:15 AM EDT Appointment [facility] - Mammography/DEXA Imaging [address] [place] [address] [facility] - Mammography[facility]DEXA Imaging Start: 08-23-2024 End: 08-23-2025 Cytopathology procedure, preparation of smear, genital source Pap Smear Pathology and Cytology Routine Cervical smear, as part of routine gynecological examination Expected: 08/23/2024 (Approximate), Expires: 08/23/[address] Comment on above: Expected: 08/23/2024 (Approximate), Expires: 08/23/2025 Start: 08-23-2024 End: 08-23-2025 DBT Breast - bilateral screening Mammography screening bilateral with CAD Imaging Routine Encounter for screening mammogram for breast cancer Expected: 08/23/2024, Expires: 08/23/2025 [place] Work Phone: Comment on above: Expected: 08/23/2024 , Expires: 08/23/2025 Start: 07-30-2024 COVID-19 Vaccine ( season) COVID-19 Vaccine ( - season) [facility] Start: 07-30-2024 Influenza vaccination Influenza Vacc ine [facility] Start: 08-15-2022 DTaP,Tdap and Td Vaccines (2 - Td or Tdap) DTaP,Tdap and Td Vaccines (2 - Td or Tdap) [facility] Start: 2004 Screening for malign ant neoplasm of cervix Pap Smear [facility] End: 08-23-2025 High risk HPV w/sydni High risk HPV w/sydni Lab Routine Cervical smear, as part of routine gynecological examination 1 Occurrences starting 08/23/2024 until 08/23/2025 [facility] Comment on above: 1 Occurrences starti ng 08/23/2024 until 08/23/2025 Immunizations Immunization Date Immunization Notes Care Provider Cain aguirre 09-28-2023 influenza virus vacc ine, unspecified formulation [employer] 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 Operator [facility] Payers Date Payer Category Payer [facility] BCBS Memb er Subscriber Plan / Payer (Effective 2024-Present) Name: Vincenzo Bagley Member ID: [id number] Relation to Subscriber: Self Name: Vincenzo Bagley Subscriber ID: [id number] Payer ID: Not on file Type: Not on file Address: [address] [place] [id number] 2024 Unknown [id number] 2024 Unknown [employer]I BCBS OUT OF STATE PPO/TRUST [id number] 2024-Present [phone] [address] [place] [id number] 2024 Unknown [id number] 1983 Unknown [id number] 1983 Unknown [id number] 1983 Unknown [id number] 1286 1983 Unknown [id number] 1286 1983 Unknown [id number] 1286 1983 Unknown [id number] 1259 1961 [place] [facility] [id number] Unknown [facility] [id number] Social History Date Type Detail Facility Unknown if ever smoked [facility] Other Start: 08-23-2024 End: 04-10-2025 Sex Assigned At [facility] Other Start: 06-23-2022 End: 04-25-2024 Tobacco smoking status RUST Never smoked tobacco [facility] Start: 06-23-2022 End: 04-10-2025 Tobacco use and exposure Smokeless tobacco non-user [facility] Start: 08-31-2024 End: 04-10-2025 Alcoholic beverage intake Ex-drinker (finding) [facility] Start: 08-23-2024 End: 04-10-2025 History of Social function [facility] Adolescent depressio n screening assessment 5 [facility] Start: 1985 Sex assigned at Not on file [facility] Start: 01-16-2025 Sex Female (finding) [facility] Start: 1985 Sex Assigned At Female [facility] Tobacco smoking stat us RUST Tobacco smoking consumption unknown [facility] Start: 04-10-2025 Tobacco smoking status NCIS Ex-smoker [facility] Start: 11-29-2001 End: 11-29-2007 History of tobacco use Current smoker [facility] Start: 11-29-2001 End: 11-29-2007 History of tobacco use Cigarette Smoker [facility] Start: 04-10-2025 Alcohol Comment Maybe 1 glass of wine on [place] [facility] History of Present illness Narrative 04-10-2025 Karol Pallavi, DO - 04/10/2025 5:00 PM EDT Note Date & Type Note Facility 04-10-2025 History of Presen t illness Narrative Images from the original note were not included. Chief Complaint Patient presents with Migraine Subjective Vincenzo Bagley, 39 y.o., female new patient here in neurologic consultation at the request of Dr Lizeth Navarro for migraines, Botox consult. HPI The patient states that she was diagnosed with migraines when she was 11 years old. She is having migraines headaches a few times a week lasting about a day or 2. She has a headache 4-5 days a week with at least 15 days a month. She has at least 10-11 of them being migraine. They last more than 4 hours. They are worse with exertion. She states that she runs out of Imitrex before she is due for her next refill. She states most of the time the imitrex works but she can wake up the next day with migraine again. The pain is on the right side of her head and a cross her forehead. It is a shooting and pounding. She admits to photophobia and phonophobia. She admits to nausea and vomiting. She denies vision changes. She runs out of her 9 imitrex. She will take excedrin 2-4 days a week. She does not have any aura to her migraine She does not have any food triggers. Strong smells, the weather and times in her cycle can seem to trigger her migraines along with stress. Going to the dentist or busy places like [place] give her headache,. She had an event with left side was tingling and she went to the ED and her work up was negative. She has been tried on: Elavil, topamax, aimovig. , Nurtec, Ubrelvy, propranolol, muscle relaxer, Wellbutrin, excedrin, imitrex, rizatriptan. Zofran and phenergan Hospital : dexamethasone, ketorlac, promethazine Past Medical History: Diagnosis Date Anxiety 2023 Depression (CMS/HCC) 2006 Migraine 1996 History reviewed. No pertinent surgical history. Family History Problem Relation Name Age of Onset Migraines Mother Belia Stroke Paternal Grandmother Niharika Social History Tobacco Use Smoking status: Former Current packs/day: 0.00 Average packs/day: 0.5 packs/day for 6.0 years (3.0 ttl pk-yrs) Types: Cigarettes Start date: 11/29/2001 Quit date: 11/29/2007 Years since quittin.3 Smokeless tobacco: Never Substance Use Topics Alcohol use: Not Currently Comment: Maybe 1 glass of wine on [place] Allergies: Patient has no known allergies. General: No fever or chills HEENT: No nasal congestion or runny nose Pulmonary: No shortness of breath or cough Cardiovascular: No chest pain or palpitations GI: No nausea or vomiting : No dysuria or hematuria Musculoskeletal: No new aches or pains or muscle weakness Infectious: no recurrent fevers or infections Dermatologic: No rashes or skin lesions Neurologic: No new headaches or dizziness Vitals: 04/10/25 1708 BP: 108/78 Pulse: 78 SpO2: 100% Body mass index is 25.73 kg/m . Weight: 154 lb 9.6 oz Neurologic exam: General: Normal body habitus, cooperative, pleasant Mental status: Awake, alert to person, place and time. Recent and remote memory are intact. Attention and concentration are normal. Fund of knowledge is appropriate for level of education. HEENT: NC/AT Cranial nerves: CN II: Visual murray full to confrontation. No loss of vision CN III, IV, : pupils equal round and reactive to light. Extraocular movements intact. No ptosis present. CN V: Facial sensation is normal. CN VII: Full and symmetric facial movement. CN VIII: Hearing is normal CN IX and X: Palate elevates symmetrically. CN XI: Shoulder shrug is normal bilaterally. CN XII: Tongue is midline without atrophy or fasciculation. Speech: Clear and fluent no aphasia or dysarthria Pronator drift: Negative bilateral upper extremity Coordination: Intact, no signs of dysmetria Good finger to nose and rapid alternating movements Sensory: Sensation is intact to light, temperature and vibratory touch throughout four extremities. Pinprick intact in all four extremities. Motor: LUE 5/5 RUE 5/5 LLE 5/5 RLE 5/5 Tone: Physiologic, no tremor, bradykinesia or rigidity DTR: Bilateral Biceps 2/4 Bilateral BR 2/4 Bilateral Patellar 2/4 No spasticity Gait: Normal to casual gait Romberg's Negative Review and summary of old records: Assessment/Plan Diagnoses and all orders for this visit: Intractable chronic migraine without aura and without status migrainosus (CMS/HCC) - Atogepant (Qulipta) 60 MG tablet; Take 60 mg by mouth Daily - Botulinum Injection - Head/Face/Jaw; Future Medication overuse headache Nausea and vomiting, unspecified vomiting type 39-year-old female with a long history of migraine headaches who has now developed into chronic intractable migraine without status migrainosus without aura. She has been refractory to multiple different classes of medications both preventatively and abortive. She does get more than 15 headache days per month and more than 8 or migraine. Botox injections are now medically necessary and I would anticipate using up to 200 units of Botox once every 90 days and would appreciate a 1 year approval. She does get migrainous features including photophobia phonophobia nausea and vomiting. She did have 1 event with numbness and tingling for when she went to the emergency room and had an evaluation that was negative. She may have some medication overuse/rebound headache phenomenon from overuse of the Excedrin She has been tried on: Elavil, topamax, aimovig. , Nurtec, Ubrelvy, propranolol, muscle relaxer, Wellbutrin, excedrin, imitrex, rizatriptan. Tylenol, motrin, Zofran and phenergan Hospital : dexamethasone, ketorlac, promethazine Plan Submit for Botox injections Trial of qulipta 60mg while waiting on approval Continue the Imitrex as needed Minimize the Excedrin Minimize abortive medicines to 2 days out of the week Drink plenty of fluids Regular exercise Whole foods Can discontinue the propranolol if it is not helping the headaches The patient was counseled on the physiology of botulinum toxin and the risks and benefits of the injections. This was reviewed with the patient and included but not limited to bleeding, infection, dysphagia or weakness of the muscles. All questions were answered and they agreed to proceed with Botox injections. The diagnosis was all discussed with the patient. All questions were answered and they agreed with the treatment plan. Patient will call if there are any new issues or questions. Pt has been fully educated on their diagnosis, treatment options, follow up plan, and return instructions Return to clinic: 2 months documented in this encounter [facility] History of Present illness Narrative 08-23-2024 Radha Lamb, SADAF-PRODUCT DEVELOPMENT COORDINATOR - 08/23/2024 1:30 PM EDT Note Date & Type Note Facility 08-23-2024 History of Present illness Narrative Annual Well Woman Visit 08/23/2024 Whit Bagley is a pleasant 38 y.o. 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 Periods are regular every 28-30 days, lasting 3 days. Dysmenorrhea: none. Cyclic symptoms include none. Denies intermenstrual bleeding, spotting, or abnormal discharge. Denies pelvic pain. Patient declines STD testing today. Complaints today: none Relationship status: in a relationship The patient reports that there is not domestic violence in her life. 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 Follow up as needed. Await pap. Discussed ASCCP screening guidelines. Discussed taking a multivitamin. Discussed Calcium and Vitamin D for prevention of osteoporosis. Discussed recommendations for HPV vaccine between 9-45 yo. [facility]. Discussed need for yearly mammogram after 40 yo. Discussed colon cancer screening recommendations to begin at 45 yo, patient to discuss with PCP. All questions answered. MICHELLE James APRN-CNP Lisa M Krotzer, APRN-CNP 08/23/24 1353 documented in this encounter [facility] [employer] Consultation note 12-22-2022 Note Date & Type [...] her life. The patient works in the [employer] system. Cervical spondylosis at the level of [...] been ordered. CC: Lizeth Navarro M.D. [facility] Evaluation note 06-10-2022 Note Date & Type [...] or concerns. May, Nausea (ICD-10 - R11.0) [facility] Other Evaluation note Note Date & Type Note Facility Evaluation note Diagnosis Heterogeneously dense tissue of both breasts on mammography- Primary documented in this encounter [employer] [employer] Evaluation note Note Date & Type Note Facility Evaluation note Diagnosis Well woman exam with routine gynecological exam- Primary Routine gynecological examination Encounter for screening mammogram for breast cancer Cervical smear, as part of routine gynecological examination Screening for malignant neoplasm of the cervix Standardized adult depression screening tool completed documented in this encounter [facility] [employer] Evaluation note Note Date & Type Note Facility Evaluation note Diagnosis Onset Date Resolution Migraine headache acute Februar y 2024 2:27pm [facility] Work Phone: Evaluation note Note Date & Type Note Facility Evaluation note Diagnosis Intractable chronic migraine without aura and without status migrainosus (CMS/HCC)- Primary Medication overuse headache Drug induced headache, not elsewhere classified Nausea and vomiting, unspecified vomiting type documented in this encounter [facility] Instructions Note Date & Type Note Facility Instructions Not on filedocumented in this en counter [facility] [facility] Instructions Attachments Note Date & Type Note Facility Instructions The following attachments cannot be sent through Care Everywhere.How to Perform Breast Self-Examination (Ugandan)Calcium and vitamin D for bone health (Ugandan)documented in this encounter [facility] Summary Purpose Family History No Family History Records FoundNo Family History Records FoundNo Family History Records FoundNo Family History Records FoundNo Family History Records Found Advance Directives No Advanced Directives Records Found Advance Directive Response Recorded Date/ Time Advance Directives No April 25 4:34pm Reason for Referral Specialty Diagnoses / Procedures Referred By Contac t Referred To Contact Radiology Diagnoses Heterogeneously dense tissue of both breasts on mammography Procedures NM Molecular breast imaging localization limited area Radha Lamb, ANIMAL RIDES MANAGER-PRODUCT DEVELOPMENT COORDINATOR [address] [place] [address] Referral ID Status Reason Start Date Expiration Date V isits Requested Visits Authorized [id number] Pending Review 08/31/2024 08/31/2025 5 5 Chief Complaint and Reason for Visit Chief Complaint Admit Date Migraine January 16, 2025 2:27pm Reason for Visit Admit Date Migraine headache January 16, 2025 2:27pm Additional Source Comments INFORMATION SOURCE (unrecogn ized section and content) DATE CREATED AUTHOR 12/14/2019 [facility] DATE CREATED AUTHOR AUTHOR'S ORGANIZ ATION 04/13/2023 [facility] DATE CREATED AUTHOR AUTHOR'S ORGANIZ ATION 06/21/2023 [facility] DATE CREATED AUTHOR AUTHOR'S ORGANIZ ATION 09/18/2024 [facility] DATE CREATED AUTHOR AUTHOR'S ORGANIZ ATION 04/12/2025 [facility] EPIC REASON FOR VISIT (unrecogniz ed section and content) Reason Comments Gynecologic Exam PT IS HERE FOR ANNUA L Reason Comments Migraine Specialty Diagnoses / Procedures Referred By Contac t Referred To Contact Neurology Diagnoses Migraine, unspecified, not intractable, without status migrainosus (CMS/[facility]) Procedures NC OFFICE/OUTPATIENT NEW LOW MDM 30 MINUTES Lizeth Navarro MD Phone: tel: fax: Karol Olivo DO [address] [place] [address] Phone: tel: fax: Referral ID Status Reason Start Date Expiration Date V isits Requested Visits Authorized [id number] Closed Consult and Treat 02/16/2025 08/15/2025 1 1 Care Teams (unrecognized sec tion and content) Laboratory Monitor Relationship Specialty Start Date End Date Lizeth Navarro MD PCP - General 06/29/23 Laboratory Monitor Relationship Specialty Start Date End Date Lizeth Navarro MD PCP - General 06/29/23 Team Status: Active Member Role Status Dates Lizeth Navarro MD Primary Care Provider Active Team Status: Inactive Member Role Status Dates Lizeth Navarro MD Primary Care Provider Active Start: January 16, 2025 End: January 16, 2025 Adelina Colon APRN Attending Provider Active Start: January 16, 2025 End: January 16, 2025 Laboratory Monitor Relationship Specialty Start Date End Date Lizeth Navarro MD [address] [place] [address] PCP - General Family Medicine 04/10/25 Laboratory Monitor Relationship Specialty Start Date End Date Lizeth Navarro MD [address] [place] [address] PCP - General Family Medicine 04/10/25 Goals (unrecognized section and content) Goals may [...] BE BASED ON THE PRIMARY CLINICAL RECORDS. [employer] [facility]. provides no warranty or guarantee of the accuracy or completeness of information in this document.
[2025-04-12] MEDS: 0.9 % SODIUM CHLORIDE 1,000 ML 1000 ML IV ×2 (19:16→20:13)
[2025-04-12 19:20] LABS: Basophils Percent Auto 0.5 % (0.2-2.0); Eosinophils Percent Auto 0.3 % (0.9-7.0); Hematocrit 33.5 % (36.0-48.0); Hemoglobin 11.7 g/dL (12.0-16.0); Immature Granulocytes Abs Auto 0.02 10^3/uL (0.00-0.03); Immature Granulocytes Pct Auto 0.3 % (0.0-0.5); Lymphocytes Absolute Auto 1.5 10^3/uL (1.2-3.8); Mean Corpuscular HGB Conc 34.9 g/dL (29.9-35.2); Mean Corpuscular Hemoglobin 31.1 pg (26.7-34.0); Mean Corpuscular Volume 89.1 fL (81.0-99.0); Mean Platelet Volume 10.6 fL (9.5-13.5); Monocytes Absolute Auto 0.4 10^3/uL (0.3-0.8); Monocytes Percent Auto 6.7 % (1.7-12.0); Neutrophils Absolute Auto 4.6 10^3/uL (1.4-6.5); Neutrophils Percent Auto 70.2 % (43.0-75.0); Platelet Count 238 10^3/uL (150-450); Red Blood Count 3.76 10^6/uL (4.20-5.40); Red Cell Distribution Width 12.6 % (11.0-15.0); White Blood Count 6.6 10^3/uL (4.0-11.0)
[2025-04-12 19:34] LABS: D Dimer <0.19 mg/L FEU (<=0.59)
[2025-04-12 19:41] LABS: Alanine Aminotransferase 25 U/L (14-59); Albumin Globulin Ratio 1.2; Albumin Level 3.6 g/dL (3.4-5.0); Alkaline Phosphatase 59 U/L (46-116); Anion Gap 13.4; Aspartate Amino Transferase 13 U/L (15-37); BUN Creatinine Ratio 14.3; Bilirubin Total 0.3 mg/dL (0.2-1.0); Calcium 9.2 mg/dL (8.5-10.1); Carbon Dioxide 26.9 mmol/L (21.0-32.0); Chloride 105 mmol/L (98-107); Estimated GFR (African America >60 (>=60 mL/min/1.73m^2); Estimated GFR (Non-African Ame >60 (>=60 mL/min/1.73m^2); Globulin 3.1 g/dL; Glucose 103 mg/dL (74-106); Potassium 3.3 mmol/L (3.5-5.1); Sodium 142 mmol/L (136-145); TSH W/ REFLEX FT4 1.252 uIU/mL (0.358-3.740); Total Protein 6.7 g/dL (6.4-8.2); Troponin I High Sensitivity <4.0 pg/mL (4.0-51.3)
[2025-04-12 20:23] LABS: Bilirubin Urine NEGATIVE (NEGATIVE); Blood Urine SMALL (NEGATIVE); Clarity Urine CLEAR (CLEAR); Color Urine LT. YELLOW (YELLOW); Glucose Urine UA NEGATIVE (NEGATIVE); Ketones Urine NEGATIVE (NEGATIVE); Leukocyte Esterase Urine TRACE (NEGATIVE); Nitrite Urine NEGATIVE (NEGATIVE); Protein Urine NEGATIVE (NEG/TRACE); Specific Gravity Urine <=1.005 (1.005-1.025); Urobilinogen Urine 0.2 EU/dL (0.2-1.0)
[2025-04-12 20:25] LABS: Urine Microscopic Indicated YES
[2025-04-12 20:32] LABS: Bacteria Urine SMALL #/HPF (NONE SEEN); Cast Seen? NONE SEEN #/LPF (NONE SEEN); Crystals Seen? None Seen #/HPF (None Seen); Mucus Urine NONE SEEN (NONE SEEN); RBC Urine 0-2 #/HPF (0-2); Squamous Epithelial Cell Urine FEW #/LPF (NONE/RARE); Urine Culture Indicated YES-FRMC
[2025-04-12 20:35] LABS: Amphetamine Screen Urine NEGATIVE (NEGATIVE); Barbiturates Screen Urine NEGATIVE (NEGATIVE); Benzodiazepines Screen Urine NEGATIVE (NEGATIVE); Buprenorphine Screen Urine NEGATIVE (NEGATIVE); Cannabinoid Screen Urine NEGATIVE (NEGATIVE); Cocaine Screen Urine NEGATIVE (NEGATIVE); Methadone Screen Urine NEGATIVE (NEGATIVE); Methamphetamines Screen Urine NEGATIVE (NEGATIVE); Opiate Screen Urine NEGATIVE (NEGATIVE); Oxycodone Screen Urine NEGATIVE (NEGATIVE); Phencyclidine Screen Urine NEGATIVE (NEGATIVE); Tricyclic Antidepressant Urine NEGATIVE (NEGATIVE)
== END 2025-04-12 21:06 | disposition home or self-care (01) ==
PROVIDERS: Nurse Practitioner; Emergency Provider Emergency Medicine; PCP Family Medicine
DX: R00.2 Palpitations (principal); E03.9 Hypothyroidism, unspecified; Z79.899 Other long term (current) drug therapy
CPT/HCPCS: 36415; 71046; 80053; 80307; 81001; 84443; 84484; 85025; 85378; 87086; 93005; 99285